=== PATIENT | female | born 1945 | race Caucasian/White ===

== ENCOUNTER 2016-09-18 08:10 | Emergency (ER) | payer MEDICARE, BC ==
[2016-09-18 08:42] VITALS: BP 143/53
--- NOTE | 2016-09-18 09:18 | UC ---
Respiratory Complaint HPI - HPI Summary HPI Summary: 2 WEEKS OF DEEP COUGH AND CHEST CONGESTION. NO FEVER, ST, EAR PAIN OR N/V/D. DOES NOT FEEL SHE IS IMPROVING AT ALL. FEELS INTERMITTENTLY SOB AND WHEEZY. - History of Current Complaint Chief Complaint: UCRespiratory Stated Complaint: CONGESTION Time Seen by Provider: 09/18/16 09:11 Hx Obtained From: Patient Onset/Duration: Gradual Onset, Lasting Weeks, Still Present Timing: Constant Severity Initially: Moderate Severity Currently: Moderate Pain Intensity: 0 Pain Scale Used: 0-10 Numeric Character: Cough: Productive Aggravating Factors: Nothing Alleviating Factors: Nothing Associated Signs And Symptoms: Positive: Dyspnea, Wheezing, URI, Nasal Congestion. Negative: Fever, Chills, Pleuritic Chest Pain, Hemoptysis, Dizziness, Calf Pain, Calf Swelling, Edema, Hoarseness - Allergies/Home Medications Allergies/Adverse Reactions: Allergies Allergy/AdvReac Type Severity Reaction Status Date / Time Sulfa Drugs AdvReac Unknown Rash Verified 09/18/16 08:43 PMH/Surg Hx/FS Hx/Imm Hx Cardiovascular History: Hypertension Psychological History: Anxiety - Surgical History Surgical History: Yes Surgery Procedure, Year, and Place: 04/2006 [facility] [place] gastric [place] band [place] - Family History Known Family History: Negative: Hypertension - Social History Alcohol Use: Rare Substance Use Type: None Smoking Status (MU): Former Smoker Type: Cigarettes Have You Smoked in the Last Year: Yes Review of Systems Constitutional: Negative ENT: Nasal Discharge Respiratory: Shortness Of Breath, Cough Cardiovascular: Negative Gastrointestinal: Negative All Other Systems Reviewed And Are Negative: Yes Physical Exam Triage Information Reviewed: Yes Appearance: Well-Appearing, No Pain Distress, Well-Nourished, Obese Vital Signs: Initial Vital Signs Temp 97.6 F 09/18/16 08:37 Pulse 80 09/18/16 08:37 Resp 20 09/18/16 08:37 BP 143/53 09/18/16 08:37 Pulse Ox 99 09/18/16 08:37 Vital Signs Reviewed: Yes Eyes: Positive: Conjunctiva Clear ENT: Positive: Hearing grossly normal, Pharynx normal, TMs normal Neck: Positive: Supple, Nontender, No Lymphadenopathy Respiratory: Positive: No respiratory distress, No accessory muscle use, Rhonchi - LEFT LOWER LOBE Cardiovascular Exam: Normal Abdomen Description: Positive: Soft Musculoskeletal: Positive: No Edema Neurological: Positive: Alert Psychological: Positive: Age Appropriate Behavior Skin: Negative: rashes UC Diagnostic Evaluation - Laboratory O2 Sat by Pulse Oximetry: 99 Respiratory Course/Dx - Differential Dx/Diagnosis Provider Diagnoses: ACUTE BRONCHITIS Discharge - Discharge Plan Condition: Stable Disposition: HOME Prescriptions: Albuterol HFA INHALER* [Ventolin HFA Inhaler*] 2 puff INH Q4H PRN #1 mdi PRN Reason: Shortness Of Breath Azithromycin [Azithromycin 500 MG TAB] 500 mg PO DAILY #5 tab predniSONE TAB* [Deltasone TAB*] 40 mg PO DAILY #10 tab Patient Education Materials: Acute Bronchitis (ED) Referrals: Carlos Silva MD [Primary Care Provider] - If Needed
== END 2016-09-18 09:33 | disposition home or self-care (01) ==
LOC: UCEAST 08:10
DX: J20.9 Acute bronchitis, unspecified (principal); Z87.891 Personal history of nicotine dependence
CPT/HCPCS: 99212; G0463

== ENCOUNTER 2019-03-02 11:44 | Emergency (ER) | payer MEDICARE, OTHER ==
--- OUTSIDE RECORDS SUMMARY | 2019-03-02 12:53 | XMS REPORT | Summary of Care ---
:1945 Author Organization [facility] Address [address] [facility] [place] [address] Care Team Providers Name Role Phone Carlos Silva Primary Care Provider Adilia Leung Unavailable Beverly Leblanc MD Unavailable Mariella Poole DPM Unavailable Awilda Zepeda RN Unavailable Unavailable Betsy San Unavailable Reason for Visit Reason Comments Sinus Problem onset Sun am, fever/chills, left side facial pain, sore throat, left ear pain, some cough, was tx for bronchitis a few weeks ago (given z-packand felt better afterwards) Encounter Details Date Type Department Care Team Description 02/26/2019 Office Visit [place] Casi Gonzales, Fever, unspecified fever cause (Primary Dx); 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 Probiotic Product Take 1 Cap by 0 Active (PROBIOTIC ADVANCED mouth DAILY. PO) Glucose Blood In 100 Strips by In 100 Strip 3 Active Vitro Vitro route 7 StripIndications: DAILY. contolled Diabetes mellitus non-insulin without complication dependent (HCC) diabetes. Test once a day Omeprazole delayed Take 20 mg by 90 Cap 3 Active rel cap 20 MG Oral mouth DAILY. 8 CAPSULE DELAYED RELEASEIndications: Gastroesophageal reflux disease without esophagitis albuterol HFA Take 2 Puffs by 1 Inhaler 3 Active (VENTOLIN) 108 (90 inhalation EVERY 8 Base) MCG/ACT FOUR HOURS Inhalation Aero NEEDED SolnIndications: (wheezing). Wheezing Blood Glucose Monitor 1 Device by Does 1 Device 0 Active Software Does not not apply route 8 apply DIRECTED. DeviceIndications: uncontrolled Diabetes mellitus non-insulin without complication dependent (HCC) diabetes. Brand: Insurance preferred diclofenac EC TAKE 1 TABLET 180 Tab 3 Active (VOLTAREN) 50 MG Oral TWICE A DAY 8 Tab EC Lancets Does not by Does not 100 Each 5 Active apply Misc apply route 9 DIRECTED. Brand:one touch delica Dx:DM 250.00 non insulin dependent.test bid. Glucose Blood (BLOOD 1 Each by Does 50 Strip 10 Active GLUCOSE TEST STRIPS) not apply route 9 In Vitro Strip THREE TIMES DAILY. Diagnosis: E11.9 Brand:one touch ultra strip blue Frequency:qd lisinopril (PRINIVIL, TAKE 1 TABLET 90 Tab 2 Active ZESTRIL) 20 MG Oral DAILY 9 TabIndications: Essential hypertension, benign citalopram (CELEXA) TAKE 1 TABLET 90 Tab 2 Active 20 MG Oral Tab DAILY 9 econazole nitrate 1 % APPLY TO THE 85 g 17 Active Apply externally AFFECTED AREAS 9 Cream OF THE GROIN TWICE A DAY NEEDED tramadol (ULTRAM) 50 Take 2 Tabs by 240 Tab 5 Active MG Oral Tab mouth EVERY SIX 9 HOURS NEEDED (pain). Max Daily Amount: 8 Tabs. . metFORMIN TAKE 1 TABLET 180 Tab 4 Active (GLUCOPHAGE) 500 MG TWICE A DAY 9 Oral TabIndications: Diabetes mellitus without complication (HCC) atorvastatin TAKE 1 TABLET 90 Tab 4 Active (LIPITOR) 20 MG Oral DAILY 9 TabIndications: Mixed hyperlipidemia azithromycin Take 2 pills on 6 Tab 0 02/27/20 Discontinued (ZITHROMAX) 250 MG the first day 12 27 Oral Tab and 1 pill each day for 4 days documented as of this encounter (statuses as of 02/26/2019) Active Problems Problem Noted Date Diabetes mellitus without complication 08/28/2017 Colon polyp 05/22/2012 Overview: Colonoscopy polypectomy 2008 next due 2014 Ovarian cyst 03/26/2008 Overview: S/p ovarian cyst removal left [facility] [place] 2005. Spastic colitis 08/14/2007 CARMELITA (obstructive sleep apnea) 08/14/2007 Overview: Dr Anaya, 01/02/09, Severe sleep disordered breathing CPAP titration Dr Anaya, 12/25/09 F/U sleep disorder, to continue CPAP auto titration device Osteoarthritis 08/14/2007 Overview: Of right hand and knees. Dr carballo 12/16. Morbid obesity 03/14/2007 Overview: Patient underwent Bariatric lap band surgery, Dr Gonzalez, [facility] , 05/09/2006. Mixed hyperlipidemia 03/14/2007 Essential hypertension, benign 03/14/2007 Depression with anxiety 03/14/2007 REFLUX ESOPHAGEAL 03/14/2007 documented as of this encounter (statuses as of 02/26/2019) Resolved Problems Problem Noted Date Resolved Date Osteoarthrosis, unspecified whether generalized or 02/21/2008 05/22/2012 localized, lower leg documented as of this encounter (statuses as of 02/26/2019) Immunizations Name Administration Dates Next Due Adacel TdaP 03/14/2007 Influenza (IM) Preservative Free 01/14/2014, 01/06/2011, 03/26/2008 Influenza Vaccine High Dose 02/20/2018, 01/06/2017, 12/21/2015, 01/16/2015 Influenza Vaccine Whole 02/02/2009, 03/14/2007, 03/14/2007 Influenza Virus Vaccine Pres Free 6-35 01/23/2012, 03/03/2010 Months PNEUMOCOCCAL POLYSACCHARIDE VACCINE 05/22/2012 Pneumococcal Conjugate(13 Valent) 06/27/2014 ZOSTER (ZOSTAVAX) VACCINE 09/06/2014 documented as of this encounter Social History Tobacco Use Types Packs/Day Years Used Date Never Smoker Smokeless Tobacco: Never Used Comments: smoked from 20-26 Alcohol Use Drinks/Week oz/Week Comments No 0 Standard drinks or equivalent 0.0 Social Isolation Answer Date Recorded In a typical week, how many times do you More than three times a week 2018 talk on the phone with family, friends, or neighbors? How often do you get together with friends More than three times a week 04/25 or relatives? How often do you attend methodist or Never 04/25/2018 anabaptist services? Do you belong to any clubs or No 04/25/2018 organizations such as methodist groups, [employer] or athletic groups, or school groups? How often do you attend meetings of the Never 04/25/2018 clubs or organizations you belong to? Are you now , , , 04/25/2018 , never or living with a partner? Physical Activity Answer Date Recorded On average, how many days per week do you engage in moderate to 2 days 2018 strenuous exercise (like walking fast, running, jogging, dancing, swimming, biking, or other activities that cause a light or heavy sweat)? On average, how many minutes do you engage in exercise at this 50 min 2018 level? Stress Answer Date Recorded Do you feel stress - tense, restless, nervous, or anxious, Not at all 2018 or unable to sleep at night because your mind is troubled all the time - these days? Financial Resource Strain Answer Date Recorded How hard is it for you to pay for the very basics like Not hard at all 2018 food, housing, medical care, and heating? Intimate Partner Violence Answer Date Recorded Within the last year, have you been afraid of your partner or No 04/25/2018 ex-partner? Within the last year, have you been humiliated or emotionally No 04/25/2018 abused in other ways by your partner or ex-partner? Within the last year, have you been kicked, hit, slapped, or No 04/25/2018 otherwise physically hurt by your partner or ex-partner? Within the last year, have you been raped or forced to have any No 04/25/2018 kind of sexual activity by your partner or ex-partner? Food Insecurity Answer Date Recorded Within the past 12 months, you worried that your food would Never true 2018 run out before you got money to buy more. Within the past 12 months, the food you bought just didn't Never true 2018 last and you didn't have money to get more. Transportation Needs Answer Date Recorded In the past 12 months, has lack of transportation kept you from No 04/25/2018 medical appointments or from getting medications? In the past 12 months, has lack of transportation kept you from No 04/25/2018 meetings, work, or getting things needed for daily living? Sex Assigned at Date Recorded Not on file Job Start Date Occupation Industry Not on file Not on file Not on file Travel History Travel Start Travel End No recent travel history available. documented as of this encounter Last Filed Vital Signs Vital Sign Reading Time Taken Comments Blood Pressure 144/82 02/26/2019 10:41 AM EST Pulse 86 02/26/2019 10:41 AM EST Temperature 38.9 02/26/2019 10:41 AM EST C (102 F) Respiratory Rate - - Oxygen Saturation 97% 02/26/2019 10:41 AM EST Inhaled Oxygen Concentration - - Weight 143.3 kg (316 lb) 02/26/2019 10:41 AM EST Height 167.6 cm (5' 6") 02/26/2019 10:41 AM EST Body Mass Index 51 02/26/2019 10:41 AM EST documented in this encounter Patient Instructions Patient InstructionsCasi Knight NP - 02/26/2019 10:40 AM EST Strep was negative. I will let you know about the flu swab we did. You have opted not to take tamiflu. 1) Take Tylenol and Motrin over the counter as needed for pain and symptom relief 2) hot tea with lemon, honey, salt water gargles, cough drops - to soothe your throat. 4) Get plenty of rest and fluids 5) Please call or return if symptoms worsen or fail to improve in 5-7 days. If fever doesn't come down with tylenol/motrin, you develop shortness of breath or chest pain - go to the er. 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 It can affect your nose, throat, ears,and sinuses. Common signs and symptoms include the following: Cold symptoms are usually worst for the first 3 to5 days. You may have any of the following: Runny or stuffy nose Sneezing and coughing Sore throat or hoarseness Red, watery, and sore eyes Fatigue Chills and fever Headache, body aches, or sore muscles Seek care immediately if: You have severe headaches, a stiff neck, or eye pain when you look at bright light. You have chest pain or trouble breathing. Contact your healthcare provider if: You have a fever over 102F (39C). Your sore throat gets worse or you see white or yellow spots in your throat. Your symptoms get worse after 3 to 5 days or your cold is not better in 14 days. You have a rash anywhere on your skin. You have large, tender lumps in your neck. You have thick, green or yellow drainage from your nose. You cough up thick yellow, green, martino, or bloody mucus. You have vomiting for more than 24 hours and cannot keep fluids down. You have a bad earache. You have questions or concerns about your condition or care. Treatment for a cold: There is no cure for the common cold. Colds are caused by viruses and do not get better with antibiotics. Most people get better in 7 to 14 days. You may continue to cough for 2 to 3 weeks. The following may help decrease your symptoms: Decongestants help reduce nasal congestion and help you breathe more easily. If you take decongestant pills, they may make you feel restless or not able to sleep. Do not use decongestant sprays for more than a few days. Cough suppressants help reduce coughing. Ask your healthcare provider which type of cough medicine is best for you. NSAIDs , such as ibuprofen, help decrease swelling, pain, and fever. NSAIDs can cause stomach bleeding or kidney problems in certain people. If you take blood thinner medicine, always ask your healthcare provider if NSAIDs are safe for you. Always read the medicine label and follow directions. Acetaminophen decreases pain and fever. It is available without a doctor' s order. Ask how muchto take and how often to take it. Follow directions. Acetaminophen can cause liver damage if not taken correctly. Manage your cold: Use a humidifier or vaporizer. Use a cool mist humidifier or a vaporizer to increase air moisture in your home. This may make it easier for you to breathe and help decrease your cough. Gargle with warm salt water to help your sore throat feel better. Make salt water by adding teaspoon salt to 1 cup warm water. You may also suck on hard candy or throat lozenges. You may usea sore throat spray. Use saline nasal drops to help relieve your congestion. Drink liquids as directed. Liquids help keep your air passages moist and help you cough up mucus. Ask how much liquid to drink each day and which liquids are best for you. Rest as much as possible. Slowly start to do more each day. Prevent spreading your cold to others: Try to stay away from other people during the first 2 to 3 days of your cold when it is more easily spread. Do not share food or drinks. Do not share hand towels with household members. Wash your hands often, especially after you blow your nose. Turn away from other people and cover your mouth and nose with a tissue when you sneeze or cough. Follow up with your healthcare provider as directed: Write down your questions so you remember to ask them during your visits. 2016 [employer]. Information is for End User's use only and may not be sold, redistributed or otherwise used for commercial purposes. All illustrations and images included in CareNotes are the copyrighted property of [employer], [employer]. or [employer]. The above information is an certified medical aide only. It is not intended as medical advice for individual conditions or treatments. Talk to your doctor, nurse or pharmacist before following any medical regimen to see if it is safe and effective for you. documented in this encounter Progress Notes Casi Knight NP - 02/26/2019 10:40 AM EST PATIENT: Juliane Ling : 1945 DATE OF SERVICE: 02/26/2019 CHIEF COMPLAINT: Chief Complaint Patient presents with Sinus Problem onset Sun am, fever/chills, left side facial pain, sore throat, left ear pain , some cough, was tx for bronchitis a few weeks ago (given z-packand felt better afterwards) Subjective HISTORY OF PRESENT ILLNESS: Juliane Ling is a 73-y.o. female. HPI Sudden onset illness Monday morning. Fever, chills, sore throat. No cough, no shortness of breath (more than normal). +Body aches, malaise, headaches. Left ear plugged up. Eyes ok. Sinus pain andpressure (facial). She did not take any tylenol or motrin today, did not want to mask the symptoms. She took dayquil and nyquil yesterday - did not help much. Chloraseptic spray didn't help. She takes tramadol every day for arthritis - this has been helping with the symptoms. She was treated for bronchitis 2 weeks ago with a zpack, this completely resolved at the time. These symptoms are different and all upper respiratory, nothing below the throat. Past Medical History: Diagnosis Date Morbid obesity (HCC) 03/14/2007 Patient underwent Bariatric surgery, 05/09/2006. CARMELITA (obstructive sleep apnea) 08/14/2007 Osteoarthritis 08/14/2007 Of right hand and knees. Postmenopausal Spastic colitis 08/14/2007 Family History Problem Relation Age of Onset Breast Cancer Mother Alzheimer's Disease Mother 80 Cancer Sister Uterine Uterine Cancer Sister Alcohol/Drug Sister Psychiatry Sister Stroke Father 95 No Known Problems Daughter No Known Problems Son Current Outpatient Medications Medication Sig albuterol HFA (VENTOLIN) 108 (90 Base) MCG/ACT Inhalation Aero Soln Take 2 Puffs by inhalation EVERY FOUR HOURS NEEDED (wheezing). atorvastatin (LIPITOR) 20 MG Oral Tab TAKE 1 TABLET DAILY Blood Glucose Monitor Software Does not apply Device 1 Device by Does not apply route DIRECTED. uncontrolled non-insulin dependent diabetes. Brand : Insurance preferred citalopram (CELEXA) 20 MG Oral Tab TAKE 1 TABLET DAILY diclofenac EC (VOLTAREN) 50 MG Oral Tab EC TAKE 1 TABLET TWICE A DAY econazole nitrate 1 % Apply externally Cream APPLY TO THE AFFECTED AREAS OF THE GROIN TWICE ADAY NEEDED ERGOCALCIFEROL PO Take by mouth DAILY. Glucose Blood (BLOOD GLUCOSE TEST STRIPS) In Vitro Strip 1 Each by Does not apply route THREETIMES DAILY. Diagnosis: E11.9 Brand:one touch ultra strip blue Frequency:qd Glucose Blood In Vitro Strip 100 Strips by In Vitro route DAILY. contolled non-insulin dependent diabetes. Test once a day Lancets Does not apply Misc by Does not apply route DIRECTED. Brand: one touch delica Dx:DM 250.00 non insulin dependent.test bid. lisinopril (PRINIVIL, ZESTRIL) 20 MG Oral Tab TAKE 1 TABLET DAILY metFORMIN (GLUCOPHAGE) 500 MG Oral Tab TAKE 1 TABLET TWICE A DAY Omeprazole delayed rel cap 20 MG Oral CAPSULE DELAYED RELEASE Take 20 mg by mouth DAILY. Probiotic Product (PROBIOTIC ADVANCED PO) Take 1 Cap by mouth DAILY. tramadol (ULTRAM) 50 MG Oral Tab Take 2 Tabs by mouth EVERY SIX HOURS NEEDED (pain). Max Daily Amount: 8 Tabs. . No current facility-administered medications for this visit. 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 Social Needs Financial resource strain: Not hard at all Food insecurity: Worry: Never true Inability: Never true Transportation needs: Medical: No Non-medical: No Tobacco Use Smoking status: Never Smoker Smokeless tobacco: Never Used Tobacco comment: smoked from Substance and Sexual Activity Alcohol use: No Alcohol/week: 0.0 standard drinks Drug use: No Sexual activity: Yes Partners: Male Lifestyle Physical activity: Days per week: 2 days Minutes per session: 50 min Stress: Not at all Relationships Social connections: Talks on phone: More than three times a week Gets together: More than three times a week Attends anabaptist service: Never Active member of club or organization: No Attends meetings of clubs or organizations: Never Relationship status: Intimate partner violence: Fear of current or ex partner: No Emotionally abused: No Physically abused: No Forced sexual activity: No Other Topics Concern Back Care Not Asked Bike Helmet Not Asked Blood Transfusions Not Asked Caffeine Concern Not Asked Exercise No Comment: sedentary lifestyle Hobby Hazards Not Asked International Travel Not Asked Service Not Asked Occupational Exposure Not Asked Seat Belt Not Asked Self-Exams Not Asked Sleep Concern Not Asked Special Diet Not Asked Stress Concern Yes Comment: celexa controls anxiety Weight Concern Yes Social History Narrative and lives with in [facility] ground floor of daughters house 2 adult children REVIEW OF SYSTEMS: Review of Systems Constitutional: Positive for chills, fever and malaise/fatigue. HENT: Positive for congestion, ear pain (left), sinus pain and sore throat. Eyes: Negative for pain and discharge. Respiratory: Negative for cough and shortness of breath. Cardiovascular: Negative for chest pain and palpitations. Gastrointestinal: Negative for nausea and vomiting. Musculoskeletal: Body aches Neurological: Positive for headaches. Negative for dizziness. Objective PHYSICAL EXAM: VITALS: BP 144/82 | Pulse 86 | Temp (!) 102 F (38.9 C) | Ht 5' 6" ( 1.676 m) | Wt 316 lb(143.3 kg) | SpO2 97% | BMI 51.00 kg/m Body mass index is 51 kg/m. Physical Exam Vitals signs and nursing note reviewed. Constitutional: General: She is not in acute distress. Appearance: Normal appearance. She is well-developed. She is not ill- appearing or toxic-appearing. HENT: Right Ear: Tympanic membrane, ear canal and external ear normal. No mastoid tenderness. Tympanic membrane is not erythematous, retracted or bulging. Left Ear: Tympanic membrane, ear canal and external ear normal. No mastoid tenderness. Tympanic membrane is not erythematous, retracted or bulging. Nose: Mucosal edema (erythema) and rhinorrhea present. Rhinorrhea is clear. Right Sinus: Frontal sinus tenderness present. No maxillary sinus tenderness. Left Sinus: Frontal sinus tenderness present. No maxillary sinus tenderness. Mouth/Throat: Mouth: Mucous membranes are moist. Pharynx: Oropharynx is clear. Uvula midline. Posterior oropharyngeal erythema present. No oropharyngeal exudate. Tonsils: No tonsillar exudate. Swellin+ on the right. 1+ on the left. Eyes: Conjunctiva/sclera: Conjunctivae normal. Cardiovascular: Rate and Rhythm: Normal rate and regular rhythm. Heart sounds: Normal heart sounds. Pulmonary: Effort: Pulmonary effort is normal. Breath sounds: Normal breath sounds. Lymphadenopathy: Head: Right side of head: No submental, submandibular or tonsillar adenopathy. Left side of head: No submental, submandibular or tonsillar adenopathy. Cervical: No cervical adenopathy. Right cervical: No superficial cervical adenopathy. Left cervical: No superficial cervical adenopathy. Upper Body: Right upper body: No supraclavicular adenopathy. Left upper body: No supraclavicular adenopathy. Neurological: Mental Status: She is alert. Psychiatric: Behavior: Behavior is cooperative. ASSESSMENT / IMPRESSION: ICD-9-CM ICD-10-CM 1. Fever, unspecified fever cause 780.60 R50.9 STREP A ANTIGEN (AMB POCT) THROAT STREP SCREEN CULTURE FLU A/FLU B/RSV PCR ASSAY (TESTED AT [facility] ONLY) THROAT STREP SCREEN CULTURE FLU A/FLU B/RSV PCR ASSAY (TESTED AT [facility] ONLY) 2. Acute URI 465.9 J06.9 STREP A ANTIGEN (AMB POCT) THROAT STREP SCREEN CULTURE FLU A/FLU B/RSV PCR ASSAY (TESTED AT [facility] ONLY) THROAT STREP SCREEN CULTURE FLU A/FLU B/RSV PCR ASSAY (TESTED AT [facility] ONLY) Plan 1. Fever, unspecified fever cause - STREP A ANTIGEN (AMB POCT) - negative - THROAT STREP SCREEN CULTURE; Future - FLU A/FLU B/RSV PCR ASSAY (TESTED AT [facility] ONLY); Future - THROAT STREP SCREEN CULTURE - FLU A/FLU B/RSV PCR ASSAY (TESTED AT [facility] ONLY) 2. Acute URI - STREP A ANTIGEN (AMB POCT) - THROAT STREP SCREEN CULTURE; Future - FLU A/FLU B/RSV PCR ASSAY (TESTED AT [facility] ONLY); Future - THROAT STREP SCREEN CULTURE - FLU A/FLU B/RSV PCR ASSAY (TESTED AT [facility] ONLY) Strep was negative. I will let you know about the flu swab we did. You have opted not to take tamiflu. 1) Take Tylenol and Motrin over the counter as needed for pain and symptom relief 2) hot tea with lemon, honey, salt water gargles, cough drops - to soothe your throat. 4) Get plenty of rest and fluids 5) Please call or return if symptoms worsen or fail to improve in 5-7 days. If fever doesn't come down with tylenol/motrin, you develop shortness of breath or chest pain - go to the er. Author: Casi Knight NP 02/26/2019 12:11 documented in this encounter Plan of Treatment Date Type Specialty Care Team Description 04/26/2019 Chronic Care Management Family Practice 05/17/2019 Lab Internal Medicine 05/23/2019 Office Visit [facility] Adilia Leung FNP [address] [place] [address] [phone] Name Type Priority Associated Diagnoses Date/Time THROAT STREP SCREEN Lab Routine Fever, unspecified fever 02/26/2019 11:00 AM EST CULTURE cause Acute URI FLU A/FLU B/RSV PCR Lab Routine Fever, unspecified fever 02/26/2019 11:15 AM EST ASSAY (TESTED AT [facility] ONLY) Acute URI Name Type Priority Associated Diagnoses Order Schedule THROAT STREP SCREEN Lab Routine Fever, unspecified fever 1 Occurrences starting CULTURE cause 02/26/2019 until Acute URI 08/25/2019 FLU A/FLU B/RSV PCR Lab Routine Fever, unspecified fever 1 Occurrences starting ASSAY (TESTED AT cause 02/26/2019 until [facility] ONLY) Acute URI 08/25/2019 Health Maintenance Due Date Last Done Comments PAP SMEAR 07/02/2010 07/02/2008, 02/17/2006, 11/09/2001 ZOSTER IMMUNIZATION SERIES 11/01/2014 09/06/2014 (2 of 3) INFLUENZA VACCINE (#1) 2018 02/20/2018, 01/06/2017, 12/21/2015, Additional history exists Diabetic Eye Exam 02/21/2019 02/21/2018, 11/08/2016 HEMOGLOBIN A1C 03/02/2019 11/30/2018, 08/04/2018, 02/20/2018, Additional history exists DEPRESSION SCREENING 04/25/2019 04/25/2018 FALL RISK ASSESSMENT 04/25/2019 04/25/2018, 04/25/2018 MAMMOGRAM (SCREENING) 04/25/2019 04/25/2018, 01/23/2017, 08/01/2016, Additional history exists MEDICARE ANNUAL WELLNESS 04/25/2019 04/25/2018, 01/06/2017, VISIT 12/21/2015, Additional history exists FOOT EXAM 05/23/2019 05/23/2018, 05/23/2018, 03/10/2017 LIPID DISORDER SCREENING 02/27/2020 02/26/2019, 11/30/2018, 02/20/2018, Additional history exists COLONOSCOPY SCREENING 07/24/2024 07/24/2014, 12/11/2008, 12/11/2008 PNEUMOCOCCAL 65+YRS Completed 06/27/2014, 05/22/2012 HPV IMMUNIZATION SERIES Aged Out No longer eligible based on patient's age to complete this topic MENINGOCOCCAL VACCINE IMM Aged Out No longer eligible based on patient's age to complete this topic documented as of this encounter Goals Goal Patient Goal Associated Recent Patient-Stated? Author Type Problems Progress Blood Pressure Blood Pressure 144/82 No Madhu, < 150/90 (02/26/2019 ADDISON Pat 10:41 AM EST) Note: This is an individualized treatment (blood pressure) goal for Juliane Ling: Displayed above (on the left) is your goal for blood pressure control. Your most recent blood pressure is also shown above, on the right. You should try to achieve blood pressures that are lower than your goal listed above (on the left). Depression screen (PHQ-9) total score < 5 Depression Adilia Poon FNP Note: This is an individualized treatment (depression) goal for Juliane Ling: Displayed above is your goal for a depression screening (PHQ-9) score that would indicate good control of your depression. Glycohemoglobin A1c < 7.0 Diabetes 7.1 (11/30/2018 8:16 No Adilia Leung FNP AM EDT) Note: This is an individualized treatment (diabetes control, HgbA1C) goal for Juliane Ling: Displayed above is your progress towards your HgbA1C goal. Your goal is shown above (on the left); your most recent HgbA1C is shown on the right. Note that lower numbers are better. Weight loss vs. 18 mo Lifestyle 13.3 (02/26/2019 10:41 AM No Adilia Leung FNP max (lbs) >= 10 EST) Note: This is an individualized lifestyle goal for Juliane Ling: Your body mass index (BMI) is more than 30. You should lose weight. A reasonable starting goal is to lose 10 pounds. Displayed above is how many pounds you have lost thus far towards your 10 pound weight loss goal. Keep immunizations current Lifestyle Adilia Poon FNP Note: This is an individualized lifestyle goal for Juliane Ling: Please be sure to keep up-to-date on recommended immunizations. For example, this would include a yearly influenza vaccine. Immunization status can be seen by looking at the Health Maintenance sections of your e[facility], Plan of Care, and any After Visit Summaries. Keep a regular sleep schedule Lifestyle No Adilia Leung FNP Note: This is an individualized lifestyle goal for Juliane Ling: Please maintain a regular sleep schedule. This may help with some symptoms of depression. Take all prescribed medications as Self-management No Adilia Leung FNP directed Note: This is an individualized self-management goal for Juliane Ling: Please take all prescribed medications as directed. 1. Do not skip doses. If you cannot afford your medications, talk with your doctor. 2. Use a pill reminder system such as a pill box if needed. Your pharmacist can help you with this. 3. Contact your Pharmacy 5 days before your medication runs out. If you cannot take your medications for any reasons, talk with your doctor. 4. Please bring all of your medication bottles and inhalers (or a list of all your medications/inhalers) with you to every visit. Potential barriers to meeting all of your care plan goals will continue to be addressed on an ongoing basis. documented as of this encounter Implants Implanted Type Area Auto Body Man Device Shelf Model / Identifier Expiration Serial / Lot Date Bone Cement, Double 80gm - [id number] Bilateral DEPUY [id number] / Implanted: Qty: 2 on 04/14/2008 at [facility] : Knee / [id number] Femoral Comp Lps Flex Opt F-R - [id number] Right: [employer]IE [employer]LL 5764- 016-52 / Implanted: Qty: 1 on 04/14/2008 at [facility] / [id number] Patella, 32mm Nexgen - [id number] Right: [employer]IE [employer]RELL / Implanted: Qty: 1 on 04/14/2008 at [facility] / [id number] Prolong Surface Lps Ef 5/6 10m - [id number] Right: S[employer]IE [employer]LL 5962- 040-10 / Implanted: Qty: 1 on 04/14/2008 at [facility] / [id number] Tibial Plate Size 5 Nexgen - [id number] Right: S[employer]LL 5980-47- 01 / Implanted: Qty: 1 on 04/14/2008 at [facility] / [id number] Patella, 32mm Nexgen - [id number] Left: SALLIE FARRELL / Implanted: Qty: 1 on 04/14/2008 at [facility] / [id number] Femoral Comp Lps Flex Opt F-L - [id number] Left: S[employer]IE [employer]ARRELL 5764-016 -51 / Implanted: Qty: 1 on 04/14/2008 at [facility] / [id number] Tibial Plate Size 5 Nexgen - [id number] Left: SALLIE FARRELL 5980-47- 01 / Implanted: Qty: 1 on 04/14/2008 at [facility] / [id number] Prolong Surface Lps Ef 5/6 10m - [id number] Left: SALLIE FARRELL 5962- 040-10 / Implanted: Qty: 1 on 04/14/2008 at [facility] / [id number] documented as of this encounter Procedures Procedure Name Priority Date/Time Associated Diagnosis Comments STREP A ANTIGEN Routine 02/26/2019 11:00 AM Fever, unspecified Results for this (AMB POCT) EST fever cause procedure are in Acute URI the results section. DIABETES OPH Routine 11/08/2018 Results for this EXAM procedure are in the results section. documented in this encounter Results STREP A ANTIGEN (AMB POCT) (02/26/2019 11:00 AM EST) Strep A Antigen Negative Negative [facility] (POCT) POCT Control Line Present Present [facility] POCT Strep A Antigen Yes, Sent for [facility] Confirm (POCT) Confirmation POCT Lot Number [id number] [facility] POCT Expiration Date 12/10/19 [facility] POCT Specimen Performing Organization Address City[facility] Phone [facility] [address] [place] [address] DIABETES OPH EXAM (11/08/2018) OPHTHALMOLOGY No retinopathy No retinopathy, [facility] EXAM Retinopathy POCT Performing Organization Address City/[facility] Phone Number [facility] [address] [place] [address] documented in this encounter Visit Diagnoses Diagnosis Fever, unspecified fever cause - Primary Acute URI Acute upper respiratory infections of unspecified site documented in this encounter Insurance Payer Benefit Plan / Subscriber ID Effective Phone Address Type Group Dates MEDICARE MEDICARE PART A xxxxxxxxxxx 2012-Pres Medicare & B ent COMMERCIAL COMMERCIAL xxxxxxxxx Effective for Commercial GENERIC GENERIC PLAN all dates (Home) [address] [phone] [place], [place] (Work) [address] documented as of this encounter
--- OUTSIDE RECORDS SUMMARY | 2019-03-02 12:53 | XMS REPORT | Summary of Care ---
:1945 Author Organization [facility] Address [address] [place] [address] Care Team Providers Name Role Phone Carlos Silva Primary Care Provider Adilia Leung Unavailable Beverly Leblanc MD Unavailable Mariella Poole DPM Unavailable Awilda Zepeda RN Unavailable Unavailable Betsy San Unavailable Reason for Visit Reason Comments Congestion pt states 10 days of nasal congestion, cough, scratchy throat, fatigue, and now some chest congestion Encounter Details Date Type Department Care Team Description 01/21/2019 Office Visit [facility], Sangita, Acute bronchitis, unspecified organism (Primary Dx); Practice PA-C Diabetes mellitus without complication ([facility]) [address] [place] [address] [place] [address] [phone] Allergies Active Allergy Reactions Severity Noted Date Comments Nystatin-Triamcinolone Rash 12/21/2015 Sulfa Antibiotics Unknown Reaction 03/14/2007 documented as of this encounter (statuses as of 01/21/2019) Medications Medication Sig Dispensed Refills Start Date End Date Status ERGOCALCIFEROL PO Take by mouth 0 Active DAILY. Probiotic Product Take 1 Cap by 0 Active (PROBIOTIC ADVANCED mouth DAILY. PO) Glucose Blood In Vitro 100 Strips by In 100 Strip 3 03/10/2017 Active StripIndications: Vitro route DAILY. Diabetes mellitus contolled without complication non-insulin (HCC) dependent diabetes. Test once a day atorvastatin (LIPITOR) Take 1 Tab by 90 Tab 3 01/18/2018 Active 20 MG Oral mouth DAILY. TabIndications: Mixed hyperlipidemia Omeprazole delayed rel Take 20 mg by 90 Cap 3 01/18/2018 Active cap 20 MG Oral CAPSULE mouth DAILY. DELAYED RELEASEIndications: Gastroesophageal reflux disease without esophagitis albuterol HFA Take 2 Puffs by 1 Inhaler 3 01/18/2018 Active (VENTOLIN) 108 (90 inhalation EVERY Base) MCG/ACT FOUR HOURS Inhalation Aero NEEDED (wheezing). SolnIndications: Wheezing metFORMIN (GLUCOPHAGE) Take 1 Tab by 180 Tab 3 03/08/2018 Active 500 MG Oral mouth TWICE DAILY. TabIndications: Diabetes mellitus without complication (HCC) Blood Glucose Monitor 1 Device by Does 1 Device 0 03/08/2018 Active Software Does not not apply route apply DIRECTED. DeviceIndications: uncontrolled Diabetes mellitus non-insulin without complication dependent (HCC) diabetes. Brand: Insurance preferred diclofenac EC TAKE 1 TABLET 180 Tab 3 04/09/2018 Active (VOLTAREN) 50 MG Oral TWICE A DAY Tab EC Lancets Does not apply by Does not apply 100 Each 5 09/04/2018 Active Misc route DIRECTED. Brand:one touch delica Dx:DM 250.00 non insulin dependent.test bid. Glucose Blood (BLOOD 1 Each by Does not 50 Strip 10 09/04/2018 Active GLUCOSE TEST STRIPS) apply route THREE In Vitro Strip TIMES DAILY. Diagnosis: E11.9 Brand:one touch ultra strip blue Frequency:qd lisinopril (PRINIVIL, TAKE 1 TABLET 90 Tab 2 10/29/2018 Active ZESTRIL) 20 MG Oral DAILY TabIndications: Essential hypertension, benign citalopram (CELEXA) 20 TAKE 1 TABLET 90 Tab 2 10/29/2018 Active MG Oral Tab DAILY econazole nitrate 1 % APPLY TO THE 85 g 17 12/03/2018 Active Apply externally Cream AFFECTED AREAS OF THE GROIN TWICE A DAY NEEDED tramadol (ULTRAM) 50 Take 2 Tabs by 240 Tab 5 12/13/2018 Active MG Oral Tab mouth EVERY SIX HOURS NEEDED (pain). Max Daily Amount: 8 Tabs. . azithromycin Take 2 pills on 6 Tab 0 01/21/2019 Active (ZITHROMAX) 250 MG the first day and Oral Tab 1 pill each day for 4 days documented as of this encounter (statuses as of 01/21/2019) Active Problems Problem Noted Date Diabetes mellitus without complication 08/28/2017 Colon polyp 05/22/2012 Overview: Colonoscopy polypectomy 2009 next due 2014 Ovarian cyst 03/26/2008 Overview: S/p ovarian cyst removal left [facility] [place] 2005. Spastic colitis 08/14/2007 CARMELITA (obstructive sleep apnea) 08/14/2007 Overview: Dr Anaya, 01/02/09, Severe sleep disordered breathing CPAP titration Dr Anaya, 12/25/09 F/U sleep disorder, to continue CPAP auto titration device Osteoarthritis 08/14/2007 Overview: Of right hand and knees. Dr carballo 12/16. Morbid obesity 03/14/2007 Overview: Patient underwent Bariatric lap band surgery, Dr Gonzalez, [facility] , 05/09/2006. Mixed hyperlipidemia 03/14/2007 Essential hypertension, benign 03/14/2007 Depression with anxiety 03/14/2007 REFLUX ESOPHAGEAL 03/14/2007 documented as of this encounter (statuses as of 01/21/2019) Resolved Problems Problem Noted Date Resolved Date Osteoarthrosis, unspecified whether generalized or 02/21/2008 05/22/2012 localized, lower leg documented as of this encounter (statuses as of 01/21/2019) Immunizations Name Administration Dates Next Due Adacel [...] or relatives? How often do you attend alevism or Never 04/25/2018 moravian services? Do you belong to any clubs or No 04/25/2018 organizations such as alevism groups, unions, fraternal or athletic groups, or school groups? How [...] Sign Reading Time Taken Comments Blood Pressure 138/82 01/21/2019 10:46 AM EDT Pulse 82 01/21/2019 10:46 AM EDT Temperature 37.4 01/21/2019 10:46 AM EDT C (99.3 F) Respiratory Rate - - Oxygen Saturation 98% 01/21/2019 10:46 AM EDT Inhaled Oxygen Concentration - - Weight 144.7 kg (319 lb) 01/21/2019 10:46 AM EDT Height 167.6 cm (5' 6") 01/21/2019 10:46 AM EDT Body Mass Index 51.49 01/21/2019 10:46 AM EDT documented in this encounter Patient Instructions Patient InstructionsDoSangita grajeda PA-C - 01/21/2019 10:40 AM EDTEscribed zpak , take with food Avoid creamy foods and drink Rest, gargle with warm salt water Push water, soup, juice, tea with honey/lemon OTC Tylenol/Ibuprofen for fever/pain Call if not improving or with any questions or concerns documented in this encounter Progress Notes Sangita Dos Santos PA-C - 01/21/2019 10:40 AM EDT PATIENT: Juliane Ling : 1945 DATE OF SERVICE: 01/21/2019 REFERRING PRACTITIONER: Say PRIMARY CARE PROVIDER: Carlos Silva CHIEF COMPLAINT: Chief Complaint Patient presents with Congestion pt states 10 days of nasal congestion, cough, scratchy throat, fatigue, and now some chest congestion Subjective HISTORY OF PRESENT ILLNESS: Juliane Ling is a 73-y.o. female who presents with nasal congestion, coughing -- yellowish sputum,scratchy throat, fatigue, chest congestion x 10 days Had chills and feverish first couple of days Has been taking OTC mucinex -- did loosen some Has DM II -- currently takes metformin 500 BID BS has good -- around 120 Denies nausea, vomiting, diarrhea, chest pains, SOB Past Medical History: Diagnosis Date Morbid obesity (HCC) 03/14/2007 Patient underwent Bariatric surgery, 05/09/2006. CARMELITA (obstructive sleep apnea) 08/14/2007 Osteoarthritis 08/14/2007 Of right hand and knees. Postmenopausal Spastic colitis 08/14/2007 Past Surgical History: Procedure Laterality Date AR GI NUCLEAR PROCEDURE UNLISTED 04/2006 gastric band, Dr. Gonzalez TOTAL KNEE REPLACEMENT Bilateral 04/14/2008 bilateral, 04/2008 Family History Problem Relation Age of Onset [...] (wheezing). atorvastatin (LIPITOR) 20 MG Oral Tab Take 1 Tab by mouth DAILY. Blood Glucose Monitor Software Does not apply [...] DAILY metFORMIN (GLUCOPHAGE) 500 MG Oral Tab Take 1 Tab by mouth TWICE DAILY. Omeprazole delayed rel cap 20 MG Oral [...] level: Not on file Occupational History Occupation: [employer] Social Needs Financial resource strain: Not hard [...] More than three times a week Attends moravian service: Never Active member of club or [...] Social History Narrative and lives with in [facility] ground floor of daughters house 2 adult children REVIEW OF SYSTEMS: Skin: negative skin lesions Eyes: negative visual blurring Ears/Nose/Throat: positive rhinorrhea, scratchy throat, sinus pressure, post nasal drip Respiratory: positive cough Cardiovascular: negative chest pain Gastrointestinal: negative abdominal pain, constipation, diarrhea, nausea or vomiting Genitourinary: negative burning on urination, dysuria or vaginal discharge Musculoskeletal: positive arthritis/joint pain Neurologic: negative numbness or tingling of feet or hands Psychiatric: positive anxiety Hematologic/Lymphatic/Immunologic: negative allergies Endocrine: positive diabetes II Objective PHYSICAL EXAMINATION: VITALS: BP 138/82 (BP Location: Left arm, Patient Position: Sitting) | Pulse 82 | Temp 99.3 F(37.4 C) | Ht 5' 6" (1.676 m) | Wt 319 lb (144.7 kg) | SpO2 98% | BMI 51.49 kg/m Body mass index is 51.49 kg/m. General appearance: alert, mild distress, cooperative, oriented times 3, morbidly obese Skin: Skin color, texture, turgor normal. No rashes or lesions. Head: Normocephalic. No masses, lesions, tenderness or abnormalities Eyes: conjunctivae/corneas clear. PERRL, EOM's intact. Ears: positive findings: TMs mild bulging bilaterally Nose/Sinuses: positive findings: mucosa erythematous and swollen, clear rhinorrhea Oropharynx: positive findings: mild oropharyngeal erythema, post nasal drip present Neck: Neck supple, FROM. No cervical or supraclavicular adenopathy. Lungs: Scattered rhonchi bilaterally Heart: RRR. No murmur, clicks or gallops. Trace lower limb edema . IMPRESSION: ICD-9-CM ICD-10-CM 1. Acute bronchitis, unspecified organism 466.0 J20.9 2. Diabetes mellitus without complication (HCC) 250.00 E11.9 Plan PLAN: 1. Escribed zpak, take with food Avoid creamy foods and drink Rest, gargle with warm salt water Push water, soup, juice, tea with honey/lemon OTC Tylenol/Ibuprofen for fever/pain 2. Continue with current dose of metformin Call if not improving or with any questions or concerns Author: Sangita Dos Santos PA-C 01/21/2019 08:27 documented in this encounter Plan of Treatment Date Type Specialty Care Team Description 04/26/2019 Chronic Care Management Family Practice 05/17/2019 Lab Internal Medicine 05/23/2019 Office Visit Family Practice Adilia Leung FNP [address] [place] [address] [phone] Health Maintenance Due Date Last Done Comments PAP SMEAR 07/02/2010 07/02/2008, 02/17/2006, 11/09/2001 ZOSTER IMMUNIZATION SERIES 11/01/2014 09/06/2014 (2 of 3) INFLUENZA VACCINE (#1) 2018 02/20/2018, 01/06/2017, 12/21/2015, Additional history exists HEMOGLOBIN A1C 03/02/2019 11/30/2018, 08/04/2018, 02/20/2018, Additional history exists DEPRESSION SCREENING 04/25/2019 04/25/2018 FALL RISK ASSESSMENT 04/25/2019 04/25/2018, 04/25/2018 MAMMOGRAM (SCREENING) 04/25/2019 04/25/2018, 01/23/2017, 08/01/2016, Additional history exists MEDICARE ANNUAL WELLNESS 04/25/2019 04/25/2018, 01/06/2017, VISIT 12/21/2015, Additional history exists FOOT EXAM 05/23/2019 05/23/2018, 05/23/2018, 03/10/2017 LIPID DISORDER SCREENING 12/01/2019 11/30/2018, 02/20/2018, 08/18/2017, Additional history exists Diabetic Eye Exam 02/22/2020 02/21/2018, 11/08/2016 COLONOSCOPY SCREENING 07/24/2024 07/24/2014, 12/11/2008, 12/11/2008 PNEUMOCOCCAL 65+YRS Completed 06/27/2014, 05/22/2012 HPV IMMUNIZATION SERIES Aged Out No longer eligible based on patient's age to complete this topic MENINGOCOCCAL VACCINE IMM Aged Out No longer eligible based on patient's age to complete this topic documented as of this encounter Goals Goal Patient Goal Associated Recent Patient-Stated? Author Type Problems Progress Blood Pressure Blood Pressure 138/82 No Madhu, < 150/90 (01/21/2019 ADDISON Pat 10:46 AM EDT) Note: This is an individualized treatment (blood pressure) goal for Juliane Ling: Displayed above (on the left) is your goal for blood pressure control. Your most recent blood pressure is also shown above, on the right. You should try to achieve blood pressures that are lower than your goal listed above (on the left). Depression screen (PHQ-9) total score < 5 Depression No Adilia Leung FNP Note: This is an individualized treatment [...] better. Weight loss vs. 18 mo Lifestyle 10.3 (01/21/2019 10:46 AM No Adilia Leung FNP max (lbs) >= 10 EDT) Note: This is an individualized lifestyle goal for Juliane Ling: Your body mass index (BMI) is more than 30. You should lose weight. A reasonable starting goal is to lose 10 pounds. Displayed above is how many pounds you have lost thus far towards your 10 pound weight loss goal. Keep immunizations current Lifestyle No Adilia Leung FNP Note: This [...] of this encounter Implants Implanted Type Area Draw Hand Device Shelf Model / Identifier Expiration Serial / Lot Date Bone Cement, Double 80gm - [id number] Bilateral DEPUY [id number] / Implanted: Qty: 2 on 04/14/2008 at [facility] : Knee / [id number] Femoral Comp Lps Flex Opt F-R - [id number] Right: [facility] 5764- 016-52 / Implanted: Qty: 1 on 04/14/2008 at [facility] [employer] / [id number] Patella, 32mm Nexgen - [id number] Right: [facility] / Implanted: Qty: 1 on 04/14/2008 at [facility] / [id number] Prolong Surface Lps Ef 5/6 10m - [id number] Right: [facility] 5962- 040-10 / Implanted: Qty: 1 on 04/14/2008 at [facility] [employer] / [id number] Tibial Plate Size 5 Nexgen - [id number] Right: [facility] 5980-47- 01 / Implanted: Qty: 1 on 04/14/2008 at [facility] / [id number] Patella, 32mm Nexgen - [id number] Left: [facility] / Implanted: Qty: 1 on 04/14/2008 at [facility] [facility] / [id number] Femoral Comp Lps Flex Opt F-L - [id number] Left: [facility] 5764-016 -51 / Implanted: Qty: 1 on 04/14/2008 at [facility] [employer] / [id number] Tibial Plate Size 5 Nexgen - [id number] Left: [facility] 5980-47- 01 / Implanted: Qty: 1 on 04/14/2008 at [facility] [employer] / [id number] Prolong Surface Lps Ef 5/6 10m - [id number] Left: [facility] 5962- 040-10 / Implanted: Qty: 1 on 04/14/2008 at [facility] [employer] [employer] / [id number] documented as of this encounter Results Not on filedocumented in this encounter Visit Diagnoses Diagnosis Acute bronchitis, unspecified organism - Primary Diabetes mellitus without complication (HCC) Type II or unspecified type diabetes mellitus without mention of complication, not stated as uncontrolled documented in this encounter Insurance Payer Benefit Plan / Subscriber ID Effective Phone Address Type Group Dates MEDICARE MEDICARE PART A xxxxxxxxxxx 2012-Pres Medicare & B ent COMMERCIAL COMMERCIAL xxxxxxxxx Effective for Commercial GENERIC GENERIC PLAN all dates (Home) [address] [phone] [place], [place] (Work) [address] documented as of this encounter
--- NOTE | 2019-03-02 13:00 | UC ---
Eye Complaint HPI - HPI Summary HPI Summary: 73 yo female presents with URI symptoms. She tells me that for the last week she has had sinus pain/pressure/congestion, right ear pain, and a dry cough. Right ear pain has gotten worse. Last night she noticed some right eye redness, but this morning had crusting and yellow drainage with increased redness. She has not been taking anything OTC for her symptoms. Denies fever, chills, SOB, rash, vomiting, diarrhea, dysuria. - History of Current Complaint Stated Complaint: EYE ISSUE Time Seen by Provider: 03/02/19 12:59 Hx Obtained From: Patient Onset/Duration: Gradual Onset Severity Initially: Moderate Severity Currently: Moderate Pain Intensity: 6 Pain Scale Used: 0-10 Numeric - Allergies/Home Medications Allergies/Adverse Reactions: Allergies Allergy/AdvReac Type Severity Reaction Status Date / Time Sulfa (Sulfonamide Allergy Rash Verified 03/02/19 13:07 Antibiotics) PMH/Surg Hx/FS Hx/Imm Hx Endocrine History: Diabetes Cardiovascular History: Hypertension Psychological History: Anxiety, Depression - Surgical History Surgical History: Yes Surgery Procedure, Year, and Place: 04/2006 [facility] [place] - gastric lap band surgery - Family History Known Family History: Negative: Hypertension - Social History Occupation: Retired Lives: With Family Alcohol Use: Rare Substance Use Type: None Smoking Status (MU): Former Smoker Type: Cigarettes Have You Smoked in the Last Year: Yes Review of Systems All Other Systems Reviewed And Are Negative: No Constitutional: Positive: Negative Skin: Positive: Negative Eyes: Positive: Drainage, Eye Redness ENT: Positive: Ear Ache, Nasal Discharge, Sinus Congestion Respiratory: Positive: Cough Cardiovascular: Positive: Negative Gastrointestinal: Positive: Negative Neurological: Positive: Negative Psychological: Positive: Negative Physical Exam - Summary Physical Exam Summary: GENERAL: WDWN. No pain distress. SKIN: No rashes, sores, lesions, or open wounds. HEENT: Head: AT/NC Eyes: EOM intact. PERRLA. RIGHT EYE: Moderate scleral injection. Conjunctiva with moderate erythema and inflammation. Moderate yellow discharge. Ears: Hearing grossly normal. RIGHT TM with moderate erythema and bulging. LEFT TM with mild erythema and bulging. Nose: Nasal mucosa mildly swollen and erythematous with yellow discharge. TTP maxillary sinus. Positive post nasal drip Throat: Posterior oropharynx without exudates, erythema, or tonsillar enlargement. Uvula midline. NECK: Supple. Nontender. No lymphadenopathy. CHEST: Mild wheezing throughout. No r/r. No accessory muscle use. Breathing comfortably and in no distress. CV: Pulses intact. Cap refill <2seconds NEURO: Alert. PSYCH: Age appropriate behavior. Triage Information Reviewed: Yes Vital Signs: Vital Signs: Temp Pulse Resp BP Pulse Ox 98 F 110 18 170/73 97 03/02/19 13:04 03/02/19 13:04 03/02/19 13:04 03/02/19 13:04 03/02/19 13:04 Vital Signs: Temp Pulse Resp BP Pulse Ox 99.1 F 81 18 170/73 97 03/02/19 13:59 03/02/19 13:59 03/02/19 13:04 03/02/19 13:04 03/02/19 13:04 Vital Signs Reviewed: Yes Diagnostics - Radiology CXR Radiology Interpretation Completed By: ED Physician Summary of Radiographic Findings: No PNA Eye Complaint Course/Dx - Course Course Of Treatment: CXR wet read negative. Right conjunctivitis. Sinusitis. Otitis media right>Left. Will place her on anbx eye drops and Augmentin. Recommend f/u in 2 days with her PCP for a recheck - Differential Dx/Diagnosis Provider Diagnosis: Right conjunctivitis, Otitis media Discharge ED - Sign-Out/Discharge Documenting (check all that apply): Patient Departure All imaging exams completed and their final reports reviewed: No - Discharge Plan Condition: Stable Disposition: HOME Prescriptions: Amoxicillin/Clavulanate TAB* [Augmentin TAB 875*] 875 mg PO BID #14 tab Ofloxacin 0.3% (Eye Drop) [Ocuflox OPTH 0.3% (Eye Drop)] 2 drop RIGHT EYE QID # 1 btl Patient Education Materials: Ear Infection (ED), Conjunctivitis (ED) Referrals: Carlos Silva MD [Primary Care Provider] - 2 Days Additional Instructions: If you develop a fever, shortness of breath, chest pain, new or worsening symptoms - please call your PCP or go to the ED immediately. Your blood pressure was high at todays visit. Please see your primary provider within 4 weeks for recheck and re-evaluation. I recommend that you be rechecked by your primary doctor in 2-3 days - Billing Disposition and Condition Condition: STABLE Disposition: Home - Attestation Statements Provider Attestation: I was available for consult. This patient was seen by the [facility]. The patient was not presented to , seen by or examined by -Kevin Bueno MD
[2019-03-02 13:07] VITALS: BP 170/73
== END 2019-03-02 13:52 | disposition home or self-care (01) ==
LOC: UCEAST 11:44
DX: H10.9 Unspecified conjunctivitis (principal); H66.91 Otitis media, unspecified, right ear; E11.9 Type 2 diabetes mellitus without complications; I10 Essential (primary) hypertension; R09.81 Nasal congestion; R06.2 Wheezing; R09.82 Postnasal drip; Z88.2 Allergy status to sulfonamides; Z87.891 Personal history of nicotine dependence
CPT/HCPCS: 71046; 99212; G0463

== ENCOUNTER 2019-04-25 05:21 | Inpatient (IN) | payer MEDICARE, OTHER ==
[2019-04-25] MEDS ORDERED: Ondansetron INJ* 2 MG/ML VIAL IV ONE (07:09)
[2019-04-25] MEDS ORDERED: Morphine 4 MG/ML VIAL (1 ml) 4 MG/ML VIAL IV ONE ×2 (07:09→08:29)
[2019-04-25] MEDS ORDERED: Lactated Ringers 1000 ML Bag* 1,000 ML IV SCH (08:00)
[2019-04-25 08:08] LABS: ABS Basophils 0.1 10^3/ul (0-0.2); ABS Lymphocytes 1.8 10^3/ul (1.0-4.8); ABS Monocytes 0.8 10^3/ul (0-0.8); ABS Neutrophils 12.1 10^3/ul (1.5-7.7); Eosinophil % 0.3 %; Hematocrit 45 % (35-47); Hemoglobin 15.1 g/dL (12.0-16.0); Lymphocyte % 12.2 %; Mean Corpuscular HGB Conc 34 g/dL (31-36); Mean Corpuscular Hemoglobin 30 pg (27-31); Mean Corpuscular Volume 88 fL (80-97); Nucleated Red Blood Cells % 0.1; Platelet Count 296 10^3/uL (150-450); Red Blood Count 5.04 10^6 /uL (3.70-4.87); Red Cell Distribution Width 15 % (10-15); White Blood Count 14.9 10^3/uL (3.5-10.8)
[2019-04-25 08:19] LABS: Albumin 4.1 g/dL (3.2-5.2); Albumin/Globulin Ratio 1.2 (1-3); BUN/Creatinine Ratio 21.1 (8-20); C Reactive Protein 23.86 mg/L (<8.01); Calcium 9.5 mg/dL (8.6-10.3); EGFR African American 74.5 (>60); EGFR Non-African American 61.5 (>60); Globulin 3.3 g/dL (2-4); Magnesium 1.9 mg/dL (1.9-2.7); Potassium 4.2 mmol/L (3.5-5.0); Total Bilirubin 0.9 mg/dL (0.2-1.0); Total Protein 7.4 g/dL (6.4-8.9)
[2019-04-25] MEDS ORDERED: NS 0.9% 1000 ML** 1,000 ML IV ONE (08:46)
[2019-04-25] MEDS ORDERED: Iodixanol* (CONTRAST) 320 MG/ML 100 ML SDV IV ONE (08:58)
--- NOTE | 2019-04-25 12:30 | ED ---
Abdominal Pain/Female - HPI Summary HPI Summary: Patient is a 74-year-old female with a history of LAP-BAND surgery [address] Gonzalez, ovarian cyst surgery/removal 25 years ago presenting to the ED with 2-3 day hx of n/v. Also endorsing L sided abd pain radiating throughout. Worse now to the epigastric region s/p vomiting. Has not taken any of her medications in the past 3 days. Last BM 2 days ago. Last emesis was approximately 3 hours prior to arrival. Denies any hematemesis, melena, hematochezia. Denies any history of diverticulitis. No complications with LAP- BAND surgery. Patient denies any fevers, sweats, chills. No known hernia. - History of Current Complaint Chief Complaint: EDAbdPain Stated Complaint: VOMITING Time Seen by Provider: 04/25/19 06:38 Hx Obtained From: Patient ?: No Timing: Constant Severity Initially: Moderate Severity Currently: Mild Pain Intensity: 0 Pain Scale Used: 0-10 Numeric Location: Other - left sided Radiates: No Character: Sharp, Cramping Aggravating Factor(s): Nothing Alleviating Factor(s): Nothing Associated Signs and Symptoms: Positive: Negative, Decreased Appetite, Nausea, Vomiting. Negative: Fever, Cough, Chest Pain, Back Pain, Constipation, Blood in Stool, Urinary Symptoms - Risk Factors Ectopic Risk Factor: Negative Ovarian Torsion Risk Factor: Negative Allergies/Adverse Reactions: Allergies Allergy/AdvReac Type Severity Reaction Status Date / Time Sulfa (Sulfonamide Allergy Rash Verified 03/02/19 13:07 Antibiotics) Home Medications: Home Medications Atorvastatin* [Lipitor*] 20 mg PO DAILY 04/25/19 [History Confirmed 04/25/19] Diclofenac Sodium EC TAB* [Voltaren EC TAB*] 50 mg PO BID PRN 04/25/19 [History Confirmed 04/25/19] Econazole 1% CREAM (NF) [Econazole 1 % CREAM (NF)] 1 applic TOPICAL BID PRN [History Confirmed 04/25/19] Ergocalciferol CAP* [Drisdol CAP*] 50,000 units PO DAILY 04/25/19 [History Confirmed 04/25/19] L.acidoph,Paracasei, B.lactis [Probiotic] 1 each PO DAILY 04/25/19 [History Confirmed 04/25/19] Omeprazole CAP (NF) [Prilosec CAP* 20 MG] 20 mg PO DAILY 04/25/19 [History Confirmed 04/25/19] metFORMIN* [Glucophage 500 MG TAB *] 500 mg PO BID 04/25/19 [History Confirmed 04/25/19] PMH/Surg Hx/FS Hx/Imm Hx Previously Healthy: Yes Endocrine/Hematology History: Reports: Hx Diabetes Cardiovascular History: Reports: Hx Hypertension - on meds Respiratory History: Reports: Hx Sleep Apnea - current CPAP user GI History: Reports: Other GI Disorders - S/P lap band surgery History: Denies: Hx Renal Disease Musculoskeletal History: Reports: Hx Arthritis Sensory History: Reports: Hx Contacts or Glasses Opthamlomology History: Reports: Hx Contacts or Glasses Psychiatric History: Reports: Hx Anxiety - Surgical History Surgery Procedure, Year, and Place: 04/2006 [facility] - gastric lap band surgery. ovarian cyst removed L side - Immunization History Hx Pertussis Vaccination: No Immunizations Up to Date: Yes Infectious Disease History: No Infectious Disease History: Denies: Traveled Outside the [place] in Last 30 Days - Family History Known Family History: Negative: Hypertension - Social History Occupation: Unemployed Lives: With Family Alcohol Use: Rare Hx Substance Use: No Substance Use Type: Reports: None Hx Tobacco Use: Yes Smoking Status (MU): Former Smoker Type: Cigarettes Have You Smoked in the Last Year: Yes Review of Systems Negative: Fever, Chills, Fatigue, Skin Diaphoresis Negative: Palpitations, Chest Pain Negative: Shortness Of Breath, Cough Positive: Abdominal Pain, Vomiting, Nausea. Negative: Diarrhea Positive: no symptoms reported Negative: Arthralgia, Myalgia Skin: Negative Neurological: Negative All Other Systems Reviewed And Are Negative: Yes Physical Exam Triage Information Reviewed: Yes Vital Signs On Initial Exam: Initial Vitals Temp Pulse Resp BP Pulse Ox 98.0 F 95 18 141/70 98 04/25/19 05:57 04/25/19 05:57 04/25/19 05:57 04/25/19 05:57 04/25/19 05:57 Vital Signs Reviewed: Yes Appearance: Positive: Well-Appearing, Well-Nourished Skin: Positive: Warm, Skin Color Reflects Adequate Perfusion Head/Face: Positive: Normal Head/Face Inspection Eyes: Positive: EOMI, STEVEN, Conjunctiva Clear Neck: Positive: Supple, No Lymphadenopathy Respiratory/Lung Sounds: Positive: Clear to Auscultation, Breath Sounds Present Cardiovascular: Positive: RRR, Pulses are Symmetrical in both Upper and Lower Extremities Abdomen Description: Positive: Other: - tednerness throughout on palpation. Negative: CVA Tenderness (R), CVA Tenderness (L), Distended, Guarding Bowel Sounds: Positive: Present Musculoskeletal: Positive: Strength/ROM Intact Neurological: Positive: Speech Normal Psychiatric: Positive: Affect/Mood Appropriate Procedures - Sedation Patient Received Moderate/Deep Sedation with Procedure: No Diagnostics - Vital Signs Vital Signs Temp Pulse Resp BP Pulse Ox 04/25/19 09:04 88 138/69 94 04/25/19 09:00 126 94 04/25/19 08:43 16 04/25/19 08:00 86 94 04/25/19 07:50 82 95 04/25/19 07:18 16 04/25/19 06:30 81 178/80 94 04/25/19 05:57 98.0 F 95 18 141/70 98 - Laboratory Lab Results: Lab Results 04/25/19 04/25/19 04/25/19 Range/Units 07:30 07:30 07:30 WBC 14.9 H (3.5-10.8) 10^3/uL RBC 5.04 H (3.70-4.87) 10^6 /uL Hgb 15.1 (12.0-16.0) g/dL Hct 45 (35-47) % MCV 88 (80-97) fL MCH 30 (27-31) pg MCHC 34 (31-36) g/dL RDW 15 (10-15) % Plt Count 296 (150-450) 10^3/uL MPV 8.0 (7.4-10.4) fL Neut % (Auto) 81.5 % Lymph % (Auto) 12.2 % [place] % (Auto) 5.6 % Eos % (Auto) 0.3 % Baso % (Auto) 0.4 % Absolute Neuts (auto) 12.1 H (1.5-7.7) 10^3/ul Absolute Lymphs (auto) 1.8 (1.0-4.8) 10^3/ul Absolute Monos (auto) 0.8 (0-0.8) 10^3/ul Absolute Eos (auto) 0.0 (0-0.6) 10^3/ul Absolute Basos (auto) 0.1 (0-0.2) 10^3/ul Absolute Nucleated RBC 0.0 10^3/ul Nucleated RBC % 0.1 Sodium 137 (135-145) mmol/L Potassium 4.2 (3.5-5.0) mmol/L Chloride 103 (101-111) mmol/L Carbon Dioxide 23 (22-32) mmol/L Anion Gap 11 (2-11) mmol/L BUN 19 (6-24) mg/dL Creatinine 0.90 (0.51-0.95) mg/dL Est GFR ( Amer) 74.5 (>60) Est GFR (Non-Af Amer) 61.5 (>60) BUN/Creatinine Ratio 21.1 H (8-20) Glucose 181 H (70-100) mg/dL Lactic Acid 1.4 (0.5-2.0) mmol/L Calcium 9.5 (8.6-10.3) mg/dL Magnesium 1.9 (1.9-2.7) mg/dL Total Bilirubin 0.90 (0.2-1.0) mg/dL AST 21 (13-39) U/L ALT 26 (7-52) U/L Alkaline Phosphatase 77 (34-104) U/L C-Reactive Protein 23.86 H (<8.01) mg/L Total Protein 7.4 (6.4-8.9) g/dL Albumin 4.1 (3.2-5.2) g/dL Globulin 3.3 (2-4) g/dL Albumin/Globulin Ratio 1.2 (1-3) Lipase 12 (11.0-82.0) U/L Result Diagrams: 04/25/19 07:30 04/25/19 07:30 Lab Statement: Any lab studies that have been ordered have been reviewed, and results considered in the medical decision making process. Abdominal Pain Fem Course/Dx - Course Course Of Treatment: During the course of treatment, patient is evaluated for mid to left-sided abdominal pain, nausea, vomiting. Patient hasn't had these symptoms in the past. She states she has had some intermittent abdominal pain, however never this long and never associated with nausea and vomiting. Labs obtained which show an elevated white count. She is given morphine, Zofran and lactated Ringer's. CT abdomen/pelvis: Small bowel obstruction, with a ventral hernia containing loops of small bowel with a transition point appears just distal to the hernia sac. She is subsequently given more morphine as well as normal saline. Surgery was consulted to see and ED. Patient is kept NPO. Appears comfortable. Will be admitted to surgery service. - Diagnoses Differential Diagnosis: Positive: Other - constipation, hernia, n/v Provider Diagnoses: SBO (small bowel obstruction) - Provider Notifications Discussed Care Of Patient With: Ana Juarez Instructed by Provider To: MD Will See In ED Discharge ED - Sign-Out/Discharge Documenting (check all that apply): Patient Departure - Discharge Plan Condition: Fair Disposition: ADMITTED TO [facility] Referrals: Carlos Silva MD [Primary Care Provider] - - Billing Disposition and Condition Condition: FAIR Disposition: Admitted to [facility]
[2019-04-25] MEDS ORDERED: Dextrose 50% VIAL 50 ml IV PUSH PRN (15:23)
[2019-04-25] MEDS ORDERED: Albuterol HFA INHALER* 8 gm MDI INH PRN (15:24)
[2019-04-25] MEDS ORDERED: hydrALAZINE IV* 20 MG/ML VIAL IV SLOW PU PRN (15:30)
[2019-04-25] MEDS ORDERED: HYDROmorphone INJ1* 1 MG/ML SYRINGE IV SLOW PU PRN (15:36)
[2019-04-25] MEDS ORDERED: Ondansetron INJ* 2 MG/ML VIAL IV PRN (15:36)
--- NOTE | 2019-04-25 15:54 | ED ---
Progress - Progress Note Progress Note: The patient is being seen by ZOE Montes, for abdominal pain with diagnosed SBO per CT results today. She states that she has been having pain in the abdomen for about a month, and she had never been told she was obstructed or had a hernia. She notes abdominal surgery for ovarian cyst in 1994, laparoscopic gastric band in 2006. Her symptoms worsened today with nausea and vomiting that have since subsided with medication in the ED. Arielle has admitted the patient for surgery. Patient is comfortable at this time as she is speaking with Dr. Lopez from surgery. Course/Dx - Course Course Of Treatment: The patient is being seen by ZOE Montes, for abdominal pain with diagnosed SBO per CT results today. She states that she has been having pain in the abdomen for about a month, and she had never been told she was obstructed or had a hernia. She notes abdominal surgery for ovarian cyst in 1994, laparoscopic gastric band in 2006. Her symptoms worsened today with nausea and vomiting that have since subsided with medication in the ED. Arielle has admitted the patient for surgery. Patient is comfortable at this time as she is speaking with Dr. Lopez from surgery. - Diagnoses Provider Diagnoses: SBO (small bowel obstruction) - Provider Notifications Instructed by Provider To: MD Will See In ED Discharge ED - Sign-Out/Discharge Documenting (check all that apply): Patient Departure - Patient accepted for admission. - Discharge Plan Condition: Fair Disposition: ADMITTED TO [facility] Referrals: Carlos Silva MD [Primary Care Provider] - - Attestation Statements Document Initiated by Scribe: Yes Documenting Scribe: Harika Harris Provider For Whom Karol is Documenting (Include Credential): Dr. Price Rome MD Scribe Attestation: Harika Cabrera scribed for Dr. Price Rome MD on 04/25/19 at 1556. Status of Scribe Document: Ready Procedures - Sedation Patient Received Moderate/Deep Sedation with Procedure: No
--- NOTE | 2019-04-25 16:22 | HP ---
H&P (Free Text) History and Physical: History and Physical / General Surgery Diagnosis:SBO/Hernia Chief Complaint: Abdominal Pain HPI:74 yo female with 2 day hx of N/V, Diarrhea yesterday, @ day hx abd pain, left sided, sharp at first, then crampy. not in pain at time of my initial exam or at subsequent exam. Pain Was epigastric at time of vomiting. Reports Lap Band Sx over [address] Gonzalez Is comfortable in bed at time of exam PMH: HTN, DM, GERD, ^ CHOL, Anxiety, OA, Chronic NSAIDS PSH: : Lap Band, Ovarian Cyst, B/L TKA SOCIAL HX: TOB neg ETOH neg DRUGS neg FAMILY HISTORY: Sister with Cervical Cancer, Mother with Breast Cancer. no history of bleeding or anesthesia problems. ALLERGIES: Sulfa MEDICATIONS: NSAIDS see attached MAR for reg home meds ROS: Other than as per HPI a 14 point Review of Systems was negative PHYSICAL EXAM: VS: Temp Pulse Resp BP Pulse Ox 98.0 F 80 16 156/73 96 04/25/19 05:57 04/25/19 15:21 04/25/19 08:43 04/25/19 15:21 04/25/19 15:21 Gen: Morbidly obese female on bed in ED in NAD HEENT: NCAT, neck supple. 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 PLAN: Admit to surgery, conservative non operative management, NPO, OOB-Ambulate , will consider NG Tube if vomits, caution needed due to Lap Band, Hospitalist consult for Medical management. Above D/W Dr Lopez, please see her note for recommendations.
--- NOTE | 2019-04-25 16:32 | CONS ---
CC: Dr. Silva; Dr. Lopez, Surgery; Dr. Juarez, Surgery * CONSULTATION REPORT: DATE OF CONSULT: 04/25/19 PRIMARY CARE PROVIDER: Dr. Silva. REQUESTING PHYSICIAN: Dr. Lopez from General Surgery. CHIEF COMPLAINT: Abdominal pain, nausea, vomiting. HISTORY OF PRESENT ILLNESS: Juliane Ling is a 74-year-old female with history of status post sleeve gastrectomy performed 13 years ago, who stated that for the past 2 days she has been having problems with crampy abdominal pain, nausea , and vomiting. She had been unable to keep anything down for 2 days. Her bowel movement was over 24 hours ago and was loose. She complains of diffuse abdominal cramping more so localized in the left side of her abdomen where her abdominal hernia is. Her nausea has somewhat improved after Zofran treatment in the ED. The medicine consult was requested due to the patient's problems with history of hypertension and diabetes. PAST MEDICAL HISTORY: 1. History of sleeve gastrectomy 13 years ago. 2. Diabetes type 2. 3. Hypertension. 4. Left-sided ovarian cyst removed remotely. 5. Obstructive sleep apnea, on CPAP. 6. Bilateral knee replacement in the past. MEDICATIONS AT HOME: Include: 1. Albuterol inhaler on a p.r.n. basis. 2. Lipitor 20 mg daily. 3. Celexa 20 mg daily. 4. Voltaren tablet 50 mg b.i.d. p.r.n. 5. Econazole cream 1 application b.i.d. p.r.n. 6. Ergocalciferol 50,000 units p.o. daily. 7. Lisinopril 20 mg daily. 8. Metformin 500 mg b.i.d. 9. Omeprazole 20 mg daily. 10. Probiotic 1 capsule b.i.d. 11. Ultram 100 mg every 6 hours p.r.n. ALLERGIES: SULFA. FAMILY HISTORY: Positive for father who at the age of 95 secondary to a stroke, mother who in her 80s with history of breast cancer and secondary to Alzheimer's. SOCIAL HISTORY: The patient denies any tobacco, alcohol, or drug use. She lives with her , Yury Ling, who is her surrogate. She is a full code. She is currently retired. REVIEW OF SYSTEMS: Please see history of present illness. All the remaining 12 systems were reviewed with the patient and were otherwise negative. PHYSICAL EXAM: Blood pressure of 156/73, heart rate of 80 and regular, respiratory rate 16, oxygen saturation 96% on room air, temperature of 98. General: The patient is a very pleasant 74-year-old female, who is in no acute distress. Alert, awake, and oriented x3, with a BMI of 49. HEENT: Head: Atraumatic, normocephalic. Eyes: Pupils are equal, reactive to light and accommodation. Oropharynx is clear. Mucosa dry. Neck: Supple. No JVD. No bruits bilaterally. Cardiovascular: Regular rate and rhythm. No murmur. Respiratory: Clear to auscultation bilaterally. Abdomen is soft, distended, protuberant. Tender diffusely, but more so on palpation of the area left to the umbilicus in midline. There is no rebound, no guarding. Bowel sounds are present in all 4 quadrants. Extremities: There is bilateral ankle trace edema. Pulses are +2 bilaterally. No clubbing or cyanosis. On neuro evaluation, speech is clear. Cranial nerves II through XII grossly intact. Motor strength is 5/5 bilaterally. DIAGNOSTIC STUDIES/LAB DATA: Sodium of 137, potassium of 4.2, chloride 103, carbon dioxide 23, BUN 19, creatinine 0.9. Liver function tests unremarkable. Lactic acid 1.4. C-reactive protein of 23. CBC: White blood cell count of 14.9, hemoglobin of 15.1, hematocrit of 45, and platelets of 296. CT of the abdomen and pelvis, impression: "Small bowel obstruction with a ventral hernia containing loops of small bowel. The transition point appears distal to the hernia sac. Hepatomegaly with fatty infiltration of the liver." ASSESSMENT AND PLAN: 1. Small bowel obstruction. It is going to be managed by General Surgery. 2. In regards to the patient's hypertension, we will stop her p.o. blood pressure medications and place the patient on hydralazine on a p.r.n. basis. 3. For the patient's diabetes, the patient is going to be placed on fingersticks every 8 hours. Her metformin is going to be held. 4. For DVT prophylaxis, the patient is going to be placed on heparin subcutaneously. 5. The patient's code status is full and her surrogate is her . Thank you very much for allowing our service to see your patient in consultation. We will follow up with the patient daily. TIME SPENT: Approximately 65 minutes was spent on the patient's consultation. [id number]/[facility] #: [id number] CASSIA
[2019-04-25] MEDS: NS 0.9% 1000 ML** 1,000 ML IV SCH (16:43)
[2019-04-25] MEDS: Pantoprazole IV* 40 MG IV SCH (16:53)
--- NOTE | 2019-04-25 17:30 | PN ---
Progress Note - Progress Note Date of Service: 04/25/19 Note: Surgery Progress Note Please see full dictated history and physical by Chinoce Thomas, but briefly patient is a 74 yo F with a history of DM, HTN, morbid obesity (s/p lap band by Dr. Gonzalez in 2006 or ) who presented to the ED with complaints of 2 days of nausea, emesis and left sided abdominal pain. She says that she last vomited this morning arund 4am. She last had a BM about 2 days ago. She has a hernia ( she noticed this as a bulge) for about 1-2 months. In the ED she was found to have a small bowel obstruction with a transition point near the hernia sac. I reviewed the imaging with radiology and it does not appear that the transition point is within the sac. On exam the patient has normal VS, appears comfortable and has an extremely obese abdomen with multiple skin excoriations ( she says from her dog). On abdominal exam I believe I may have reduced a hernia to the right of her midline but it is hard to tell given how obese she is -- it is hard to feel the defect of the hernia. She has a well healed lower midline incision. At this point we will hold an NGT-- with a lap band I am not certain it will be that helpful and she is currently comfortable, does not have significant pain and has no vomiting. We will admit the patient, place on IVF and await return of bowel function. Hopefully she will not require operative intervention. She understands this plan and agrees. We appreciate medicine's consultation and co-management of her chronic medical conditions.
[2019-04-25] MEDS: Insulin LISPRO* 1 UNITS UNIT SUBCUT SCH (22:24)
[2019-04-25] MEDS: Heparin VIAL(*) 5000 UNITS/ML VIAL (FIVE THOUSAND) SUBCUT SCH (22:24)
[2019-04-26] MEDS: NS 0.9% 1000 ML** 1,000 ML IV SCH ×2 (01:12→16:05)
[2019-04-26] MEDS: Heparin VIAL(*) 5000 UNITS/ML VIAL (FIVE THOUSAND) SUBCUT SCH ×3 (05:39→22:23)
[2019-04-26 05:43] LABS: Albumin 3.2 g/dL (3.2-5.2); CO2 Carbon Dioxide 21 mmol/L (22-32); Calcium 7.9 mg/dL (8.6-10.3); Chloride 108 mmol/L (101-111); Sodium 138 mmol/L (135-145)
[2019-04-26 05:48] LABS: ALT 22 U/L (7-52); Albumin/Globulin Ratio 1.5 (1-3); Alkaline Phosphatase 63 U/L (34-104); BUN/Creatinine Ratio 18.7 (8-20); Blood Urea Nitrogen 17 mg/dL (6-24); EGFR African American 73.5 (>60); EGFR Non-African American 60.8 (>60); Globulin 2.2 g/dL (2-4); Glucose 131 mg/dL (70-100); Total Protein 5.4 g/dL (6.4-8.9)
[2019-04-26] MEDS: Insulin LISPRO* 1 UNITS UNIT SUBCUT SCH ×3 (05:48→21:06)
[2019-04-26 05:50] LABS: Anion Gap 9 mmol/L (2-11)
[2019-04-26 06:40] LABS: ABS Basophils 0.1 10^3/ul (0-0.2); ABS Eosinophils 0.2 10^3/ul (0-0.6); ABS Lymphocytes 2.3 10^3/ul (1.0-4.8); ABS Monocytes 0.7 10^3/ul (0-0.8); ABS Neutrophils 5.8 10^3/ul (1.5-7.7); Eosinophil % 2.7 %; Hematocrit 37 % (35-47); Hemoglobin 12.7 g/dL (12.0-16.0); Lymphocyte % 25.6 %; Mean Corpuscular HGB Conc 34 g/dL (31-36); Mean Corpuscular Hemoglobin 30 pg (27-31); Mean Corpuscular Volume 87 fL (80-97); Mean Platelet Volume 7.9 fL (7.4-10.4); Platelet Count 235 10^3/uL (150-450); Red Blood Count 4.26 10^6 /uL (3.70-4.87); Red Cell Distribution Width 15 % (10-15); White Blood Count 9.1 10^3/uL (3.5-10.8)
[2019-04-26 07:03] LABS: Potassium Redraw 3.8 mmol/L (3.5-5.0)
[2019-04-26] MEDS: Citalopram TAB* 20 MG PO SCH (08:15)
[2019-04-26] MEDS: Pantoprazole IV* 40 MG IV SCH (08:16)
--- NOTE | 2019-04-26 08:31 | PN ---
Progress Note - Progress Note Date of Service: 04/26/19 SOAP: Subjective: Patient reports to be doing well. Denies any nausea or vomiting. States that she is not in any pain and feels ready to eat. She has passed flatus and has had two loose bowel movements. Objective: Vital Signs: Temp Pulse Resp BP Pulse Ox 97.2 F 79 17 158/67 98 04/26/19 07:52 04/26/19 07:52 04/26/19 07:52 04/26/19 07:52 04/26/19 07:52 General: Patient is sitting in chair in no acute distress. CV:RRR Resp.: CTAB Abdomen: Obese. Mildly tender in the LUQ. Unable to palpate hernia due to body habitus and sitting position. Laboratory Tests 04/25/19 04/26/19 04/26/19 07:30 05:12 06:13 WBC 14.9 H 9.1 Sodium 138 Potassium TNP Chloride 108 Carbon Dioxide 21 L Anion Gap 9 BUN 17 Creatinine 0.91 Est GFR ( Amer) 73.5 Est GFR (Non-Af Amer) 60.8 BUN/Creatinine Ratio 18.7 Glucose 131 H Calcium 7.9 L Total Bilirubin 0.80 AST TNP ALT 22 Alkaline Phosphatase 63 Total Protein 5.4 L Albumin 3.2 Globulin 2.2 Albumin/Globulin Ratio 1.5 Assessment: This is a 74 year old female with PMH of DM, HTN, obesity and hx of lap band ( 2006 or 2007), HD#2 who presented with an incarcerated abdominal/incisional hernia that resulted in a SBO. She is currently stable and bowels are moving well. Plan: Will speak to Dr. Lopez about advancing patients diet. Continue OOB ambulation.
--- NOTE | 2019-04-26 08:39 | PN ---
Subjective Date of Service: 04/26/19 Interval History: Pt feels much better, had 3 loose BM's and passed lots of flatus last night denies abd pain Objective Active Medications: Albuterol (Ventolin Hfa Inhaler*) 2 puff INH Q4H PRN PRN Reason: SHORTNESS OF BREATH Citalopram Hydrobromide (Celexa Tab*) 20 mg PO DAILY [facility] Last Admin: 04/26/19 08:15 Dose: 20 mg Dextrose (Dextrose 50% Vial 50 Ml*) 25 ml IV PUSH .FOR FS < 60 - SS PRN PRN Reason: FS < 60 Heparin Sodium (Porcine) (Heparin Vial(*)) 5,000 units SUBCUT Q8HR [facility] Last Admin: 04/26/19 05:39 Dose: 5,000 units Hydralazine HCl (Apresoline Iv*) 5 mg IV SLOW PU Q6H PRN PRN Reason: BLOOD PRESSURE Hydromorphone HCl (Dilaudid Inj1s*) 0.5 mg IV SLOW PU Q1H PRN PRN Reason: PAIN - SEVERE Sodium Chloride (Ns 0.9% 1000 Ml) 1,000 mls @ 75 mls/hr IV PER RATE [facility] Last Admin: 04/26/19 01:12 Dose: 75 mls/hr Insulin Human Lispro (Humalog*) 0 units SUBCUT Q8HR [facility]; Protocol Last Admin: 04/26/19 05:48 Dose: 1 units Ondansetron HCl (Zofran Inj*) 4 mg IV Q4H PRN PRN Reason: NAUSEA/VOMITING Pantoprazole Sodium (Protonix Iv*) 40 mg IV DAILY [facility] Last Admin: 04/26/19 08:16 Dose: 40 mg Vital Signs - 8 hr 04/26/19 04/26/19 03:07 07:52 Temperature 98.2 F 97.2 F Pulse Rate 86 79 Respiratory 18 17 Rate Blood Pressure 144/71 158/67 (mmHg) O2 Sat by Pulse 93 98 Oximetry Oxygen Devices in Use Now: None Appearance: 74 yo F in nAD, aAOx3 Eyes: No Scleral Icterus, PERRLA Ears/Nose/Mouth/Throat: NL Teeth, Lips, Gums, Mucous Membranes Moist Neck: NL Appearance and Movements; NL JVP, Trachea Midline Respiratory: Symmetrical Chest Expansion and Respiratory Effort, Clear to Auscultation Cardiovascular: NL Sounds; No Murmurs; No JVD, RRR Abdominal: - - obese, protruberanty, soft, mild tenderness to left of umbilicus present, no rebound, no guarding, BS+ Lymphatic: No Cervical Adenopathy Extremities: No Clubbing, Cyanosis, - - trace ankle edema b/l Skin: No Rash or Ulcers Neurological: Alert and Oriented x 3, NL Muscle Strength and Tone Result Diagrams: 04/26/19 06:13 04/26/19 06:13 Additional Lab and Data: Lab Results 04/25/19 04/25/19 04/25/19 Range/Units 07:30 07:30 07:30 WBC 14.9 H (3.5-10.8) 10^3/uL RBC 5.04 H (3.70-4.87) 10^6 /uL Hgb 15.1 (12.0-16.0) g/dL Hct 45 (35-47) % MCV 88 (80-97) fL MCH 30 (27-31) pg MCHC 34 (31-36) g/dL RDW 15 (10-15) % Plt Count 296 (150-450) 10^3/uL MPV 8.0 (7.4-10.4) fL Neut % (Auto) 81.5 % Lymph % (Auto) 12.2 % [place] % (Auto) 5.6 % Eos % (Auto) 0.3 % Baso % (Auto) 0.4 % Absolute Neuts (auto) 12.1 H (1.5-7.7) 10^3/ul Absolute Lymphs (auto) 1.8 (1.0-4.8) 10^3/ul Absolute Monos (auto) 0.8 (0-0.8) 10^3/ul Absolute Eos (auto) 0.0 (0-0.6) 10^3/ul Absolute Basos (auto) 0.1 (0-0.2) 10^3/ul Absolute Nucleated RBC 0.0 10^3/ul Nucleated RBC % 0.1 Sodium 137 (135-145) mmol/L Potassium 4.2 (3.5-5.0) mmol/L Chloride 103 (101-111) mmol/L Carbon Dioxide 23 (22-32) mmol/L Anion Gap 11 (2-11) mmol/L BUN 19 (6-24) mg/dL Creatinine 0.90 (0.51-0.95) mg/dL Est GFR ( Amer) 74.5 (>60) Est GFR (Non-Af Amer) 61.5 (>60) BUN/Creatinine Ratio 21.1 H (8-20) Glucose 181 H (70-100) mg/dL Lactic Acid 1.4 (0.5-2.0) mmol/L Calcium 9.5 (8.6-10.3) mg/dL Magnesium 1.9 (1.9-2.7) mg/dL Total Bilirubin 0.90 (0.2-1.0) mg/dL AST 21 (13-39) U/L ALT 26 (7-52) U/L Alkaline Phosphatase 77 (34-104) U/L C-Reactive Protein 23.86 H (<8.01) mg/L Total Protein 7.4 (6.4-8.9) g/dL Albumin 4.1 (3.2-5.2) g/dL Globulin 3.3 (2-4) g/dL Albumin/Globulin Ratio 1.2 (1-3) Lipase 12 (11.0-82.0) U/L Assess/Plan/Problems-Billing Assessment: 74 yo F with h/o gastric sleeve surgery 13 years ago, DM2, HTN presented with SBO - Patient Problems (1) SBO (small bowel obstruction) Comment: appears to be resolving Awaiting surgery's decision to advance diet (2) HTN (hypertension) Comment: cont hydralazine prn Holding PO meds for NPO (3) DM2 (diabetes mellitus, type 2) Comment: cont ISS, holding PO meds (4) DVT prophylaxis Comment: HSQ Status and Disposition: Medicine consult
--- NOTE | 2019-04-26 11:47 | PN ---
Progress Note - Progress Note Date of Service: 04/26/19 Note: Subjective: She is feeling well. Has passed loose BM and flatus. Denies pain, nausea, vomiting, fever, chills, weakness. Is ambulating. Objective: Laboratory Last Values WBC 9.1 10^3/uL (3.5-10.8) 04/26/19 06:13 RBC 4.26 10^6 /uL (3.70-4.87) 04/26/19 06:13 Hgb 12.7 g/dL (12.0-16.0) 04/26/19 06:13 Hct 37 % (35-47) 04/26/19 06:13 MCV 87 fL (80-97) 04/26/19 06:13 MCH 30 pg (27-31) 04/26/19 06:13 MCHC 34 g/dL (31-36) 04/26/19 06:13 RDW 15 % (10-15) 04/26/19 06:13 Plt Count 235 10^3/uL (150-450) 04/26/19 06:13 MPV 7.9 fL (7.4-10.4) 04/26/19 06:13 Neut % (Auto) 63.3 % 04/26/19 06:13 Lymph % (Auto) 25.6 % 04/26/19 06:13 [place] % (Auto) 7.5 % 04/26/19 06:13 Eos % (Auto) 2.7 % 04/26/19 06:13 Baso % (Auto) 0.9 % 04/26/19 06:13 Absolute Neuts (auto) 5.8 10^3/ul (1.5-7.7) 04/26/19 06:13 Absolute Lymphs (auto) 2.3 10^3/ul (1.0-4.8) 04/26/19 06:13 Absolute Monos (auto) 0.7 10^3/ul (0-0.8) 04/26/19 06:13 Absolute Eos (auto) 0.2 10^3/ul (0-0.6) 04/26/19 06:13 Absolute Basos (auto) 0.1 10^3/ul (0-0.2) 04/26/19 06:13 Absolute Nucleated RBC 0.0 10^3/ul 04/26/19 06:13 Nucleated RBC % 0.0 04/26/19 06:13 Sodium 138 mmol/L (135-145) 04/26/19 05:12 Potassium 3.8 mmol/L (3.5-5.0) 04/26/19 06:13 Chloride 108 mmol/L (101-111) 04/26/19 05:12 Carbon Dioxide 21 mmol/L (22-32) L 04/26/19 05:12 Anion Gap 9 mmol/L (2-11) 04/26/19 05:12 BUN 17 mg/dL (6-24) 04/26/19 05:12 Creatinine 0.91 mg/dL (0.51-0.95) 04/26/19 05:12 Est GFR ( Amer) 73.5 (>60) 04/26/19 05:12 Est GFR (Non-Af Amer) 60.8 (>60) 04/26/19 05:12 BUN/Creatinine Ratio 18.7 (8-20) 04/26/19 05:12 Glucose 131 mg/dL (70-100) H 04/26/19 05:12 POC Glucose (mg/dL) 139 mg/dL (70-100) H 04/26/19 05:39 Lactic Acid 1.4 mmol/L (0.5-2.0) 04/25/19 07:30 Calcium 7.9 mg/dL (8.6-10.3) L 04/26/19 05:12 Magnesium 1.9 mg/dL (1.9-2.7) 04/25/19 07:30 Total Bilirubin 0.80 mg/dL (0.2-1.0) 04/26/19 05:12 AST 19 U/L (13-39) 04/26/19 06:13 ALT 22 U/L (7-52) 04/26/19 05:12 Alkaline Phosphatase 63 U/L (34-104) 04/26/19 05:12 C-Reactive Protein 23.86 mg/L (<8.01) H 04/25/19 07:30 Total Protein 5.4 g/dL (6.4-8.9) L 04/26/19 05:12 Albumin 3.2 g/dL (3.2-5.2) 04/26/19 05:12 Globulin 2.2 g/dL (2-4) 04/26/19 05:12 Albumin/Globulin Ratio 1.5 (1-3) 04/26/19 05:12 Lipase 12 U/L (11.0-82.0) 04/25/19 07:30 Vital Signs - 8 hr 04/26/19 04/26/19 07:52 08:00 Temperature 97.2 F Pulse Rate 79 Respiratory 17 17 Rate Blood Pressure 158/67 (mmHg) O2 Sat by Pulse 98 Oximetry Intake and Output Last 24 Hours 04/24/19 04/25/19 04/26/19 04/27/19 06:59 06:59 06:59 06:59 Intake Total 1500 Output Total 800 Balance 700 Weight 320 lb 320 lb Intake: IV Fluids 1500 NS (0.9%) 500 Oral 0 Output: Urine 800 Other: Date of Last Bowel t-1 Movement # Bowel Movements 1 1 Estimated Stool Amount Small Medium PEX: General: Alert, in NAD or discomfort Integumentary: No rashes, jaundice, or lesions HEENT: Oropharynx clear Heart: RRR, no MRG Lungs: CTA, no WRR ABD: Soft, mildly tender around umbilicus. Bowel sounds present. No rebound tenderness or guarding. Extremities: Calves nontender. Distal pulses intact bilaterally. Assessment and plan: SBO appears to be resolving. Starting on clear liquids; will possibly further advance later today, as tolerated.
[2019-04-26] MEDS ORDERED: Dextrose 50% Syringe 50 ML* 25 GM/50 ML SYRINGE IV PUSH PRN (12:48)
[2019-04-26 20:22] LABS: Urine Appearance Cloudy; Urine Bilirubin Negative (Negative); Urine Blood Negative (Negative); Urine Color Yellow; Urine Glucose Negative (Negative); Urine Ketones Negative (Negative); Urine Nitrite Negative (Negative); Urine Protein Negative (Negative); Urine Specific Gravity 1.031 (1.010-1.030); Urine Urobilinogen Negative (Negative)
[2019-04-26 20:28] LABS: Urine Bacteria 2+ (Absent); Urine Red Blood Cell Absent (Absent); Urine Squamous Epithelial Cell Present (Absent); Urine White Blood Cell Trace(0-5/hpf) (Absent)
[2019-04-27] MEDS: Heparin VIAL(*) 5000 UNITS/ML VIAL (FIVE THOUSAND) SUBCUT SCH (05:47)
[2019-04-27 07:31] VITALS: BP 154/67
[2019-04-27] MEDS: Pantoprazole IV* 40 MG IV SCH (07:40)
[2019-04-27] MEDS: Citalopram TAB* 20 MG PO SCH (07:40)
--- NOTE | 2019-04-27 08:46 | PN ---
Subjective Date of Service: 04/27/19 Objective Active Medications: Albuterol (Ventolin Hfa Inhaler*) 2 puff INH Q4H PRN Citalopram Hydrobromide (Celexa Tab*) 20 mg PO DAILY [facility] Dextrose (D50w Syringe 50 Ml*) 12.5 gm IV PUSH .FOR FS < 60 - SS PRN Heparin Sodium (Porcine) (Heparin Vial(*)) 5,000 units SUBCUT Q8HR [facility] Hydralazine HCl (Apresoline Iv*) 5 mg IV SLOW PU Q6H PRN Hydromorphone HCl (Dilaudid Inj1s*) 0.5 mg IV SLOW PU Q1H PRN Sodium Chloride (Ns 0.9% 1000 Ml) 1,000 mls @ 75 mls/hr IV PER RATE [facility] Insulin Human Lispro (Humalog*) 0 units SUBCUT ACHS [facility]; Protocol Ondansetron HCl (Zofran Inj*) 4 mg IV Q4H PRN Pantoprazole Sodium (Protonix Iv*) 40 mg IV DAILY [facility] Vital Signs: Temp Pulse Resp BP Pulse Ox 97.8 F 70 18 154/67 97 04/27/19 07:30 04/27/19 07:30 04/27/19 07:40 04/27/19 07:30 04/27/19 07:30 Oxygen Devices in Use Now: None Result Diagrams: 04/26/19 06:13 04/26/19 06:13 Additional Lab and Data: Vital Signs: Temp Pulse Resp BP Pulse Ox 97.8 F 70 18 154/67 97 04/27/19 07:30 04/27/19 07:30 04/27/19 07:40 04/27/19 07:30 04/27/19 07:30 Assess/Plan/Problems-Billing Assessment: Ms. Ling is a 74 yo F with h/o gastric sleeve surgery 13 years ago, DM2, HTN who was admitted on 04/25/19 with a SBO. - Patient Problems (1) SBO (small bowel obstruction) Comment: - Appears to be resolving - Advanced to soft diet (2) DM2 (diabetes mellitus, type 2) Comment: - BGs 130s - Cont lispro SSI coverage, resume po meds at discharge (3) HTN (hypertension) Comment: - SBP 150 - Resume lisinopril, stop IV hydralazine (4) DVT prophylaxis Comment: - HSQ (5) Full code status Comment: Status and Disposition: Inpatient, Disposition per surgery
[2019-04-27] MEDS: Insulin LISPRO* 1 UNITS UNIT SUBCUT SCH (09:17)
--- NOTE | 2019-04-27 10:24 | PN ---
Progress Note - Progress Note Date of Service: 04/27/19 SOAP: Subjective: Pt seen and examined. Feeling well. no nausea, pos BM Objective: Temp Pulse Resp BP Pulse Ox 97.8 F 70 18 154/67 97 04/27/19 07:30 04/27/19 07:30 04/27/19 07:40 04/27/19 07:30 04/27/19 07:30 lungs clear b/l abdo: obese, nontender, reducible ventral hernia Assessment: resolving SBO Plan: d/c home f/u at [facility]
[2019-04-28] MEDS ORDERED: Atorvastatin* 20 MG TAB PO SCH (09:00)
[2019-04-28] MEDS ORDERED: Pantoprazole TAB * 40 MG TAB PO SCH (09:00)
[2019-04-28] MEDS ORDERED: Lisinopril TAB* 10 MG PO SCH (09:00)
== END 2019-04-27 12:21 | disposition home or self-care (01) | DRG 394 ==
LOC: ED 05:21 → SSU 15:06
PROVIDERS: ADMIT Surgery; ATTEND Surgery
PROC: 5A09357 Assistance with Respiratory Ventilation, Less than 24 Consecutive Hours, Continuous Positive Airway Pressure (ICD-10-PCS; principal; 2019-04-27)
DX: K43.0 Incisional hernia with obstruction, without gangrene (principal); Z68.42 Body mass index [BMI] 45.0-49.9, adult; E11.9 Type 2 diabetes mellitus without complications; I10 Essential (primary) hypertension; M19.90 Unspecified osteoarthritis, unspecified site; F41.9 Anxiety disorder, unspecified; K21.9 Gastro-esophageal reflux disease without esophagitis; Z96.653 Presence of artificial knee joint, bilateral; E66.01 Morbid (severe) obesity due to excess calories; G47.33 Obstructive sleep apnea (adult) (pediatric); Z87.891 Personal history of nicotine dependence; Z88.2 Allergy status to sulfonamides; Z79.84 Long term (current) use of oral hypoglycemic drugs; Z79.899 Other long term (current) drug therapy
CPT/HCPCS: 36415; 74018; 74177; 80053; 81003; 81015; 83605; 83690; 83735; 85025; 86140; 87077; 87086; 87186; 94660; 99284; A9270-GY; J1644; J2270; J2405; Q9967

== ENCOUNTER 2019-04-29 08:27 | Inpatient (IN) | payer MEDICARE, OTHER ==
[2019-04-29] MEDS ORDERED: Ondansetron INJ* 2 MG/ML VIAL IV ONE (08:52)
[2019-04-29] MEDS ORDERED: NS 0.9% 1000 ML** 1,000 ML IV ONE (08:52)
[2019-04-29 09:17] LABS: ABS Eosinophils 0.1 10^3/ul (0-0.6); ABS Lymphocytes 1.1 10^3/ul (1.0-4.8); ABS Monocytes 0.6 10^3/ul (0-0.8); ABS Neutrophils 7.6 10^3/ul (1.5-7.7); Eosinophil % 0.5 %; Hematocrit 43 % (35-47); Hemoglobin 14.5 g/dL (12.0-16.0); Mean Corpuscular HGB Conc 34 g/dL (31-36); Mean Corpuscular Hemoglobin 30 pg (27-31); Mean Corpuscular Volume 88 fL (80-97); Mean Platelet Volume 7.8 fL (7.4-10.4); Platelet Count 301 10^3/uL (150-450); Red Blood Count 4.87 10^6 /uL (3.70-4.87); Red Cell Distribution Width 15 % (10-15); White Blood Count 9.4 10^3/uL (3.5-10.8)
[2019-04-29 09:33] LABS: Albumin/Globulin Ratio 1.2 (1-3); BUN/Creatinine Ratio 14.9 (8-20); Calcium 9.4 mg/dL (8.6-10.3); EGFR African American 77.4 (>60); Globulin 3.4 g/dL (2-4); Potassium 4.1 mmol/L (3.5-5.0); Total Bilirubin 0.6 mg/dL (0.2-1.0); Total Protein 7.4 g/dL (6.4-8.9)
[2019-04-29] MEDS ORDERED: Morphine 4 MG/ML VIAL (1 ml) 4 MG/ML VIAL IV ONE (09:46)
--- NOTE | 2019-04-29 10:05 | ED ---
Abdominal Pain/Female - HPI Summary HPI Summary: Patient is a 74-year-old female who presents emergency department for return home abdominal pain, nausea and vomiting times one day. Patient was [place] [facility] [place] small bowel obstruction. Patient was treated conservatively with bowel rest and obstruction resolved. Patient states she felt fine first day of discharge was having normal bowel movements but last night started again with abdominal pain and has had 2 episodes of vomiting. Patient denies chest pain, shortness of breath, fever. Past surgical history of lap band and ovarian cyst resection. Patient was noted to have a ventral hernia on CT scan that was reduced by surgery at last visit. Symptoms are moderate in severity. No current modifying factors. - History of Current Complaint Chief Complaint: EDAbdPain Stated Complaint: BOWEL OBSTRUCTION PER PT Time Seen by Provider: 04/29/19 08:37 Hx Obtained From: Patient Pain Intensity: 6 Allergies/Adverse Reactions: Allergies Allergy/AdvReac Type Severity Reaction Status Date / Time Sulfa (Sulfonamide Allergy Rash Verified 04/29/19 08:53 Antibiotics) PMH/Surg Hx/FS Hx/Imm Hx Previously Healthy: Yes Endocrine/Hematology History: Reports: Hx Diabetes Cardiovascular History: Reports: Hx Hypertension - on meds Respiratory History: Reports: Hx Sleep Apnea - current CPAP user GI History: Reports: Other GI Disorders - S/P lap band surgery 2009? History: Denies: Hx Renal Disease Musculoskeletal History: Reports: Hx Arthritis Sensory History: Reports: Hx Contacts or Glasses Denies: Hx Hearing Aid, Hx Hearing Problem Opthamlomology History: Reports: Hx Contacts or Glasses Psychiatric History: Reports: Hx Anxiety - Surgical History Surgery Procedure, Year, and Place: 04/2006 [facility] [place] surgery. ovarian cyst removed L side Hx Anesthesia Reactions: No - Immunization History Date of Influenza Vaccine: 2019 Immunizations Up to Date: Yes Infectious Disease History: No Infectious Disease History: Denies: Hx of Known/Suspected MRSA, Traveled Outside the [place] in Last 30 Days - Family History Known Family History: Negative: Hypertension - Social History Alcohol Use: None Hx Substance Use: No Substance Use Type: Reports: None Hx Tobacco Use: Yes Smoking Status (MU): Never Smoked Tobacco Type: Cigarettes Have You Smoked in the Last Year: Yes Review of Systems Constitutional: Negative Negative: Fever Cardiovascular: Negative Negative: Chest Pain Respiratory: Negative Negative: Shortness Of Breath Positive: Abdominal Pain, Vomiting, Nausea Genitourinary: Negative Neurological: Negative All Other Systems Reviewed And Are Negative: Yes Physical Exam Triage Information Reviewed: Yes Vital Signs On Initial Exam: Initial Vitals Temp Pulse Resp BP Pulse Ox 97.1 F 80 19 156/92 94 04/29/19 08:32 04/29/19 08:32 04/29/19 08:32 04/29/19 08:32 04/29/19 08:32 Vital Signs Reviewed: Yes Appearance: Positive: Well-Appearing - Pt. lying on bed in NAD> present. Skin: Positive: Warm, Dry Head/Face: Positive: Normal Head/Face Inspection Eyes: Positive: Normal, EOMI Neck: Positive: Supple Respiratory/Lung Sounds: Positive: Clear to Auscultation, Breath Sounds Present Cardiovascular: Positive: Normal, RRR Abdomen Description: Positive: Other: - Morbidly obese. Abd. is soft with tenderness periumbilical. I do not apprecitate palpable hernia or abd. wall defect. Neurological: Positive: Normal, CN Intact II-III Psychiatric: Positive: Affect/Mood Appropriate Procedures - Sedation Patient Received Moderate/Deep Sedation with Procedure: No Diagnostics - Vital Signs Vital Signs Temp Pulse Resp BP Pulse Ox 04/29/19 09:46 99 171/86 92 04/29/19 09:00 79 94 04/29/19 08:47 85 95 04/29/19 08:46 85 168/82 95 04/29/19 08:32 97.1 F 80 19 156/92 94 - Laboratory Lab Results: Lab Results 04/29/19 04/29/19 Range/Units 08:56 09:04 WBC 9.4 (3.5-10.8) 10^3/uL RBC 4.87 (3.70-4.87) 10^6 /uL Hgb 14.5 (12.0-16.0) g/dL Hct 43 (35-47) % MCV 88 (80-97) fL MCH 30 (27-31) pg MCHC 34 (31-36) g/dL RDW 15 (10-15) % Plt Count 301 (150-450) 10^3/uL MPV 7.8 (7.4-10.4) fL Neut % (Auto) 81.2 % Lymph % (Auto) 12.0 % [place] % (Auto) 6.0 % Eos % (Auto) 0.5 % Baso % (Auto) 0.3 % Absolute Neuts (auto) 7.6 (1.5-7.7) 10^3/ul Absolute Lymphs (auto) 1.1 (1.0-4.8) 10^3/ul Absolute Monos (auto) 0.6 (0-0.8) 10^3/ul Absolute Eos (auto) 0.1 (0-0.6) 10^3/ul Absolute Basos (auto) 0.0 (0-0.2) 10^3/ul Absolute Nucleated RBC 0.0 10^3/ul Nucleated RBC % 0.0 Sodium 139 (135-145) mmol/L Potassium 4.1 (3.5-5.0) mmol/L Chloride 106 (101-111) mmol/L Carbon Dioxide 23 (22-32) mmol/L Anion Gap 10 (2-11) mmol/L BUN 13 (6-24) mg/dL Creatinine 0.87 (0.51-0.95) mg/dL Est GFR ( Amer) 77.4 (>60) Est GFR (Non-Af Amer) 64.0 (>60) BUN/Creatinine Ratio 14.9 (8-20) Glucose 161 H (70-100) mg/dL Calcium 9.4 (8.6-10.3) mg/dL Total Bilirubin 0.60 (0.2-1.0) mg/dL AST 25 (13-39) U/L ALT 33 (7-52) U/L Alkaline Phosphatase 79 (34-104) U/L Total Protein 7.4 (6.4-8.9) g/dL Albumin 4.0 (3.2-5.2) g/dL Globulin 3.4 (2-4) g/dL Albumin/Globulin Ratio 1.2 (1-3) Lipase 14 (11.0-82.0) U/L Result Diagrams: 04/29/19 08:56 04/29/19 09:04 Lab Statement: Any lab studies that have been ordered have been reviewed, and results considered in the medical decision making process. Abdominal Pain Fem Course/Dx - Course Course Of Treatment: Patient with return of abdominal pain and vomiting. She is afebrile stable vital signs. CT abd.pelvis 04/25/19:IMPRESSION: 1. SMALL BOWEL OBSTRUCTION, WITH A VENTRAL HERNIA CONTAINING LOOPS OF SMALL BOWEL. THE. TRANSITION POINT APPEARS CHEST DISTAL TO THE HERNIA SAC. 2. HEPATOMEGALY WITH FATTY INFILTRATION OF THE LIVER. XR per radiology: Report: #. Dilated LEFT side small bowel loops measuring up to 6.7 cm diameter concerning for. proximal small bowel obstruction possibly secondary to the LEFT para midline ventral. hernia. #. Postsurgical change of gastric banding bariatric surgery. #. No suspicious calcifications or mass effect. IMPRESSION: #. Dilated LEFT side small bowel loops measuring up to 6.7 cm diameter, increased over. the daily 2019 exam, concerning for proximal small bowel obstruction possibly secondary. to the LEFT para midline ventral hernia. Case discussed with oncall surg, Dr. Juarez, she would like repeat CT with PO contrast. Pt. admitted to hospitalist service, Dr. Tovar. - Diagnoses Differential Diagnosis: Positive: Bowel Obstruction, Constipation Provider Diagnoses: Small bowel obstruction Discharge ED - Sign-Out/Discharge Documenting (check all that apply): Patient Departure - Discharge Plan Condition: Stable Disposition: ADMITTED TO OCCIDENTAL MEDICAL Referrals: Carlos Silva MD [Primary Care Provider] - - Billing Disposition and Condition Condition: STABLE Disposition: Admitted to [facility]
[2019-04-29] MEDS ORDERED: Iodixanol* (CONTRAST) 320 MG/ML 100 ML SDV IV ONE (10:44)
[2019-04-29] MEDS ORDERED: Morphine INJ* 2 MG/ML 1 ML SYRINGE (TWO MG - NEW SYRINGE VERSION) IV PRN (11:06)
[2019-04-29] MEDS ORDERED: PROCHLORPERAZINE INJ 5 MG/ML 2 ML VIAL IV PRN (11:06)
[2019-04-29] MEDS ORDERED: Dextrose 50% Syringe 50 ML* 25 GM/50 ML SYRINGE IV PUSH PRN (11:08)
[2019-04-29] MEDS: NS 0.9% 1000 ML** 1,000 ML IV SCH ×2 (12:22→21:58)
--- NOTE | 2019-04-29 13:04 | CONSULT ---
Consult Consult: REASON FOR CONSULTATION: Bowel obstruction DATE OF CONSULTATION: 04/29/19 HPI: Juliane Ling is a 74 year-old woman with a history of HTN, DM, and morbid obesity who presents to the ED with abdominal pain, nausea, and vomiting. She was admitted on April 25 with a bowel obstruction due to ventral hernia. She was treated conservatively, and by hospital day 2, her symptoms had resolved. She was discharged two days ago on April 27. She reports last night she began having abdominal pain, nausea, and vomiting again after dinner. She vomited once last night and this morning. Her abdomen has become distended again. She also had diarrhea this morning. She returned to the ED this morning. She denies fevers at home. She resumed her usual diet after she was discharged. She denies chest pain or shortness of breath. In the ED, abdominal xray showed dilated loops of small bowel. She reports that she still has left-sided abdominal pain. The nausea has improved quite a bit, and she has been able to drink oral contrast. No emesis since arrivavl to the ED. PMH: HTN, DM, morbid obesity PSH: Ex lap for ruptured ovarian cyst in . Placement of lap band in 2006. B /l knee replacements. Home Medications Medication Instructions Recorded Confirmed Type Citalopram TAB* [Celexa TAB*] 20 mg PO DAILY 03/12/12 04/29/19 History Lisinopril TAB* [Prinivil TAB 10 20 mg PO DAILY 03/12/12 04/29/19 History MG*] traMADol TAB* [Ultram*] 100 mg PO Q6H PRN MDD 8 tabs 03/12/12 04/29/19 History Albuterol HFA INHALER* [Ventolin 2 puff INH Q4H PRN #1 mdi 09/18/16 04/29/19 Rx HFA Inhaler*] Atorvastatin* [Lipitor 20 MG*] 20 mg PO DAILY 04/25/19 04/29/19 History Diclofenac Sodium EC TAB* 50 mg PO BID PRN 04/25/19 04/29/19 History [Voltaren EC TAB*] Econazole 1% CREAM (NF) [Econazole 1 applic TOPICAL BID PRN 04/25/19 04/29/19 History 1 % CREAM (NF)] Ergocalciferol CAP* [Drisdol CAP*] 50,000 units PO WEEKLY 04/25/19 04/29/19 History L.acidoph,Paracasei, B.lactis 1 each PO DAILY 04/25/19 04/29/19 History [Probiotic] Omeprazole CAP (NF) [Prilosec CAP* 20 mg PO DAILY 04/25/19 04/29/19 History 20 MG] metFORMIN* [Glucophage 500 MG TAB 500 mg PO BID 04/25/19 04/29/19 History *] Allergies Sulfa (Sulfonamide Antibiotics) Allergy (Verified 04/29/19 08:53) Rash FH: Father from stroke. Mother had breast cancer and Alzheimer's disease. SH: Lives with . Denies tobacco, alcohol, or drug use. ROS: 10-point review of systems was obtained. Pertinent positives and negatives are in HPI. PHYSICAL EXAM: Vitals: 97.1F, HR 74, RR 20, BP 144/79 General: No acute distress. Lying on stretcher. Head: Normocephalic and atraumatic Eyes: Pupils are equal. No scleral icterus. Mouth: Moist mucous membranes. Neck: Trachea midline. CV: Regular rate and rhythm. Chest: Clear to auscultation bilaterally. Abdomen: Soft, obese. Upper abdomen seems moderately distended. There is a well -healed midline incision. Tenderness to palpation in the supraumbilical region and left upper quadrant. No rebound or guarding. I am unable to palpate a hernia defect due to body habitus. Skin: Warm and dry. Extremities: Mild pedal edema. Warm. Neuro: Alert and oriented 3. Laboratory Results - last 24 hr 04/29/19 04/29/19 04/29/19 08:56 09:04 14:12 WBC 9.4 RBC 4.87 Hgb 14.5 Hct 43 MCV 88 MCH 30 MCHC 34 RDW 15 Plt Count 301 MPV 7.8 Neut % (Auto) 81.2 Lymph % (Auto) 12.0 [place] % (Auto) 6.0 Eos % (Auto) 0.5 Baso % (Auto) 0.3 Absolute Neuts (auto) 7.6 Absolute Lymphs (auto) 1.1 Absolute Monos (auto) 0.6 Absolute Eos (auto) 0.1 Absolute Basos (auto) 0.0 Absolute Nucleated RBC 0.0 Nucleated RBC % 0.0 Sodium 139 Potassium 4.1 Chloride 106 Carbon Dioxide 23 Anion Gap 10 BUN 13 Creatinine 0.87 Est GFR ( Amer) 77.4 Est GFR (Non-Af Amer) 64.0 BUN/Creatinine Ratio 14.9 Glucose 161 H POC Glucose (mg/dL) 128 H Calcium 9.4 Total Bilirubin 0.60 AST 25 ALT 33 Alkaline Phosphatase 79 Total Protein 7.4 Albumin 4.0 Globulin 3.4 Albumin/Globulin Ratio 1.[address] abdomen/pelvis: There are dilated small bowel loops with a transition point at the level of the left parasagittal ventral hernia. A&P: 74-year-old with a small bowel obstruction likely secondary to ventral hernia. The obstruction could also be due to adhesions. The patient is interested in having the hernia repaired during this admission since she had a recurrence of her symptoms so quickly after discharge. It is unclear if she had recurrence of her symptoms due to her diet, a recurrent incarceration of bowel, or if the previous episode had not resolved completely prior to discharge. If the obstruction is due to adhesions, conservative management may still be successful. However, if there is incarcerated bowel, then she may need ventral hernia repair to resolve the symptoms definitively. There are no gross abnormalities on her CBC or BMP, and she is hemodynamically stable. I will plan to treat the bowel obstruction conservatively for now and find a time for ventral hernia repair with mesh during this admission if possible. I discussed with the patient that because of her body habitus she is at high risk for a recurrence of the hernia. Ideally the patient would be given time to lose weight before repairing the hernia. However, if the obstruction really is a result of the incarceration, then she may need hernia repair more acutely. -NPO. IVF -If patient becomes more nauseous or starts vomiting, may need NGT. -Medical optimization for ventral hernia repair likely during this admission.
[2019-04-29] MEDS ORDERED: hydrALAZINE IV* 20 MG/ML VIAL IV SLOW PU PRN (14:04)
[2019-04-29] MEDS: Heparin VIAL(*) 5000 UNITS/ML VIAL (FIVE THOUSAND) SUBCUT SCH ×2 (14:08→21:58)
[2019-04-29] MEDS: Insulin LISPRO* 1 UNITS UNIT SUBCUT SCH ×3 (14:13→21:57)
--- NOTE | 2019-04-29 19:48 | HP ---
CC: Dr. Silva; Dr. Juarez * HISTORY AND PHYSICAL: DATE OF ADMISSION: 04/29/19 PRIMARY CARE PROVIDER: Dr. Silva. CONSULTING GENERAL SURGEON: Dr. Juarez. TIME OF EVALUATION: 10:50 a.m. CHIEF COMPLAINT: "My belly is hurting again." HISTORY OF PRESENT ILLNESS: Ms. Ling is a 74 years old female with a past medical history of status post lap-band, type 2 diabetes, hypertension, obstructive sleep apnea on CPAP, left ovarian cyst removal, status post bilateral knee replacement who initially presented to the emergency room on with complaints of abdominal pain, nausea, and vomiting. She was found to have a small bowel obstruction and she was admitted for further evaluation and management. The patient was treated conservatively while in the hospital and she had improvement of her symptoms. She had a reducible ventral hernia and the plan was for her to be followed as outpatient to discuss surgical repair in the future. The patient states she was feeling well when she was discharged and thus she thinks that she ate more than she should have when she went home. She had cereal, mac and cheese, chicken, ice cream and she states that last night she started to have similar symptoms of abdominal pain that was then followed by recurrent nausea and vomiting. She denies fever, chills, chest pain, palpitations or other complaints. Her workup in the emergency room revealed recurrence of the small bowel obstruction and the hospitalist service was contacted for admission due to the patient's comorbidities. PAST MEDICAL HISTORY: 1. History of lap-band. 2. Type 2 diabetes. 3. Hypertension. 4. Morbid obesity with a BMI of 50.8. 5. Status post left ovarian cyst removal. 6. Obstructive sleep apnea, on CPAP. 7. Status post bilateral knee replacements. MEDICATIONS: 1. Albuterol 2 puffs inhaled q.4 hours p.r.n. shortness of breath. 2. Atorvastatin 20 mg p.o. daily. 3. Citalopram 20 mg p.o. daily. 4. Diclofenac 50 mg p.o. b.i.d. as needed for pain. 5. Econazole 1% cream topical b.i.d. as needed for rash. 6. Ergocalciferol 50,000 units p.o. daily. 7. Probiotics 1 tablet p.o. daily. 8. Lisinopril 20 mg p.o. daily. 9. Metformin 500 mg p.o. b.i.d. 10. Omeprazole 20 mg p.o. daily. 11. Tramadol 100 mg p.o. q.6 hours p.r.n. pain. ALLERGIES: With SULFA, the patient had a rash. FAMILY HISTORY: The patient's father at age 95 of a stroke, mother in her 80s, had a history of breast cancer and Alzheimer's. SOCIAL HISTORY: No history of tobacco, alcohol, or drug use. Surrogate decision maker is her Yury Ling, phone number is [phone]. REVIEW OF SYSTEMS: A 14-point review of systems was performed and all the pertinent negatives and positives findings are in the HPI. PHYSICAL EXAMINATION Physical examination is limited due to the patient's body habitus. GENERAL: The patient is a pleasant, elderly morbid obese lady, sitting up in the ED stretcher, in no acute distress. VITAL SIGNS: Temperature 97.9, heart rate is 78, respiratory rate is 20, oxygen saturation is 97% on 2 L, blood pressure is 155/69. HEENT: Pupils are equal. Dry mucous membranes. CHEST: Breath sounds bilaterally with no added sounds. CVS: Normal S1, S2. Regular rate and rhythm. ABDOMEN: Morbid obese, soft, distended. There is a ventral hernia around the area of her midline incision, that is tender to palpation, but reducible. Bowel sounds are present and sluggish. EXTREMITIES: Legs are puffy, but there is no pitting edema. NEURO: She is alert and oriented x3. Able to move all 4 extremities. DIAGNOSTIC STUDIES/LAB DATA: The patient had a CBC that showed a WBC 9.4, hemoglobin 14.5, hematocrit 43, platelets of 301 with 81% neutrophils. Chemistry showed sodium of 139 potassium of 4.1, chloride of 106, bicarb of 23, BUN of 13, creatinine of 0.8, glucose of 161, calcium 9.4. LFTs are normal. Lipase is 14. Abdomen x-ray shows dilated left-sided small bowel loops measuring up to 6.7 cm in diameter, increased over the x-ray from 04/26/19 concerning for proximal small bowel obstruction possibly secondary to the left paramidline ventral hernia. ASSESSMENT AND PLAN: Ms. Ling is a 74-year-old female with a past medical history of morbid obesity, type 2 diabetes, hypertension who was recently admitted to [facility] with a small bowel obstruction who presents to the emergency room with recurrence of symptoms. 1. Small bowel obstruction. I suspect this is likely secondary to her ventral hernia and this episode may have been precipitated by her diet at home including cereal, mac and cheese and chicken. I suspect this is probably going to recur even with a low-fiber diet. The patient will be admitted to the medical floor. We will keep her n.p.o. for now with symptomatic treatment and she will be seen in consultation by General Surgery. She will have a repeat CT of the abdomen and pelvis. 2. Type 2 diabetes. The patient will be n.p.o. and we will hold her metformin for now. She will have a lispro sliding scale with fingersticks q.4 hours. 3. Hypertension. The patient will be n.p.o. for now and we will hold her lisinopril. She will have hydralazine IV as needed if her blood pressure becomes uncontrolled. 4. DVT prophylaxis: The patient has a score of 3 on the DVT Prophylaxis Risk Assessment Guide and she will be started on subcutaneous heparin. 5. Code status is full. TIME SPENT: Approximately 50 minutes was spent with patient and her interview, medical records review, physical examination to complete this admission, more than half this time was spent [id number] with the patient and coordination of care. [id number] #: [id number] CASSIA
[2019-04-30] MEDS: Insulin LISPRO* 1 UNITS UNIT SUBCUT SCH ×6 (02:19→20:52)
[2019-04-30] MEDS: Heparin VIAL(*) 5000 UNITS/ML VIAL (FIVE THOUSAND) SUBCUT SCH ×3 (05:37→21:45)
[2019-04-30] MEDS: NS 0.9% 1000 ML** 1,000 ML IV SCH (07:51)
--- NOTE | 2019-04-30 09:14 | PN ---
Progress Note - Progress Note Date of Service: 04/30/19 Note: Large bowel movement last night and passing flatus this morning. Abdominal pain has mostly resolved. Denies nausea. Denies chest pain or shortness of breath. Asking for something to drink. Vital Signs - 12 hr Temp Pulse Resp BP Pulse Ox 04/30/19 07:52 16 04/30/19 07:28 98.2 F 70 16 140/60 97 04/30/19 03:17 98.4 F 78 18 137/56 97 04/29/19 23:18 99.0 F 77 18 119/36 95 General: NAD, sitting in chair CV: Regular rate and rhythm Chest: Clear to auscultation Abdomen: soft, obese. Tenderness to palpation supraumbilical region to the left of midline incision. Possible hernia at that site, unable to feel defect due to habitus. No rebound or guarding. Neuro: Alert, oriented x3 A&P 74F with small bowel obstruction, likely due to ventral hernia. Obstruction has resolved. -Will find a time for ventral hernia repair, possibly tomorrow afternoon. -May advance diet to clears as tolerated for today. NPO after midnight.
[2019-04-30] MEDS ORDERED: traMADol TAB* 50 MG PO PRN (10:40)
[2019-04-30] MEDS ORDERED: Albuterol HFA INHALER* 8 gm MDI INH PRN (10:40)
--- NOTE | 2019-04-30 12:44 | PN ---
Subjective Date of Service: 04/30/19 Interval History: HOSPITALIST PROGRESS NOTE Patient seen and examined at bedside. Care reviewed and d/w Lindsay Mack RN. She feels improved today. She had a large BM last night with significant improvement of her pain. Continues to pass flatus. N/V resolved. Family History: Unchanged from Admission Social History: Unchanged from Admission Past Medical History: Unchanged from Admission Objective Active Medications: Acetaminophen (Tylenol 650 Mg Supp) 650 mg [place] Q4H PRN PRN Reason: MILD PAIN or TEMP > 100.4 Albuterol (Ventolin Hfa Inhaler*) 2 puff INH Q4H PRN PRN Reason: SHORTNESS OF BREATH Atorvastatin Calcium (Lipitor*) 20 mg PO DAILY [facility] Citalopram Hydrobromide (Celexa Tab*) 20 mg PO DAILY [facility] Dextrose (D50w Syringe 50 Ml*) 12.5 gm IV PUSH .FOR FS < 60 - SS PRN PRN Reason: FS < 60 Econazole Nitrate (Econazole 1 % Cream (Nf)) 1 applic TOPICAL BID PRN PRN Reason: RASH Heparin Sodium (Porcine) (Heparin Vial(*)) 5,000 units SUBCUT Q8HR [facility] Last Admin: 04/30/19 05:37 Dose: 5,000 units Hydralazine HCl (Apresoline Iv*) 5 mg IV SLOW PU Q6H PRN PRN Reason: SBP>180 Sodium Chloride (Ns 0.9% 1000 Ml) 1,000 mls @ 100 mls/hr IV PER RATE [facility] Last Admin: 04/30/19 07:51 Dose: 100 mls/hr Insulin Human Lispro (Humalog*) 0 units SUBCUT ACHS [facility]; Protocol Last Admin: 04/30/19 12:27 Dose: Not Given Morphine Sulfate (Morphine Inj (Syringe))*) 1 mg IV Q1H PRN PRN Reason: PAIN - MODERATE Morphine Sulfate (Morphine Inj (Syringe))*) 2 mg IV Q1H PRN PRN Reason: PAIN - SEVERE Last Admin: 04/29/19 12:20 Dose: 2 mg Pantoprazole Sodium (Protonix Tab*) 40 mg PO DAILY [facility] Prochlorperazine Edisylate (Compazine Inj*) 5 mg IV Q6H PRN PRN Reason: NAUSEA/VOMITING Last Admin: 04/29/19 14:08 Dose: 5 mg Tramadol HCl (Ultram*) 100 mg PO Q6H PRN PRN Reason: PAIN Vital Signs - 8 hr 04/30/19 04/30/19 04/30/19 07:28 07:52 11:19 Temperature 98.2 F 97.9 F Pulse Rate 70 72 Respiratory 16 16 18 Rate Blood Pressure 140/60 138/55 (mmHg) O2 Sat by Pulse 97 97 Oximetry Oxygen Devices in Use Now: None Appearance: Pleasant morbid obese lady sitting up in a recliner in NAD Eyes: No Scleral Icterus Ears/Nose/Mouth/Throat: Mucous Membranes Moist Neck: Trachea Midline Respiratory: Symmetrical Chest Expansion and Respiratory Effort, Clear to Auscultation Cardiovascular: RRR - Normal S1 and S2 Abdominal: - - Morbid obese, soft, BS+ and active. Old, well healed surgical scar in the midline, probable area of incisional hernia, but body habitus limits physical examination Extremities: No Edema Neurological: Alert and Oriented x 3, NL Muscle Strength and Tone Result Diagrams: 04/29/19 08:56 04/29/19 09:04 Assess/Plan/Problems-Billing Assessment: Mrs Ling is a 74yo F with PMH of morbid obesity with BMI 50, s/p lap band, type 2 DM, HTN, CARMELITA on CPAP, s/p left ovarian cyst resection, recent admission for SBO, who presented to ED with c/o recurrent abdominal pain, N/V, found to have another episode of SBO. - Patient Problems (1) SBO (small bowel obstruction) Comment: - Surgery input appreciated. Her recurrent episode is likely associated with incisional hernia. Tentative plan foro hernia repair tomorrow. - Clinically SBO is resolved - start clear liquid diet and monitor. - She has no complaints of chest pain or dyspnea on exertion. EKG shows NSR at 67bpm with unspecific IVCD (not LBBB), and no acute ischemic changes. According to NSQIP calculator patient is at a 9.9% risk for any complications (average 6.2 %). RCRI is 0 predicting a risk of 0.4-0.5% risk of MACE. Although the patient is at a higher then average risk for complications, the fact her SBO has recurred in a short period of time indicates her hernia needs to be repaired. I believe the benefits of the procedure outweigh the risks and we discussed R/B/A. She's optimized for proposed hernia repair. (2) DM2 (diabetes mellitus, type 2) Comment: - Check A1c. - Continue Lispro SS. Goal to keep FS<180 in the periop period. (3) HTN (hypertension) Comment: - Controlled. - Lisinopril on hold for now - continue to monitor. (4) DVT prophylaxis Comment: - Continue SQ heparin. (5) Full code status Comment: Status and Disposition: Change to inpatient. updated at bedside. All questions answered to their satisfaction.
[2019-04-30] MEDS: ECONAZOLE 1% TOPICAL PRN (14:55)
--- NOTE | 2019-04-30 15:01 | PN ---
Progress Note - Progress Note Date of Service: 04/30/19 SOAP: Subjective: Patient reports to be much improved. Abdominal pain is minimal, and is significantly decreased from yesterday. She reports passing flatus. but has not had any bowel movements since yesterday. She has been tolerating a clear liquid diet well today without any nausea or vomiting. Objective: Vital Signs Temp 97.9 F 04/30/19 11:19 Pulse 72 04/30/19 11:19 Resp 18 04/30/19 11:19 BP 138/55 04/30/19 11:19 Pulse Ox 97 04/30/19 11:19 Intake & Output 04/29/19 04/30/19 04/30/19 18:59 06:59 18:59 Intake Total 2986 340 5955 Output Total 800 400 Balance 1010 103 900 Weight 315 lb Intake: IV Fluids 1010 903 980 NS (0.9%) 903 980 Oral 320 Output: Urine 800 400 Other: Estimated Void Small Date of Last Bowel 04/30/2019 Movement # Bowel Movements 1 Estimated Stool Amount Large Medium # Voids 1 Physical Exam: General: Pt sitting in chair in NAD CV: RRR, no murmurs, rubs or gallops Respiratory: CTAB, no rales, rhonchi or wheezes Abdomen: Soft, nondistended. Midline ventral incisional scar. Positive bowel sounds throughout. Mild tenderness to palpation in the periumbilical region just lateral to the incisional scar. No hernia palpated, exam limited by body habitus. Assessment: This is a 74 year old female HD #2 diagnosed with a small bowel obstruction likely due to a ventral hernia. She is stable and awaiting surgery on . Plan: Continue clear liquid diet as tolerated, NPO after midnight the night before surgery. Ambulate out of bed daily.
[2019-05-01 04:58] LABS: ABS Basophils 0.1 10^3/ul (0-0.2); ABS Eosinophils 0.3 10^3/ul (0-0.6); ABS Monocytes 0.5 10^3/ul (0-0.8); ABS Neutrophils 4.8 10^3/ul (1.5-7.7); Eosinophil % 3.4 %; Hematocrit 35 % (35-47); Hemoglobin 11.6 g/dL (12.0-16.0); Lymphocyte % 26.2 %; Mean Corpuscular HGB Conc 34 g/dL (31-36); Mean Corpuscular Hemoglobin 30 pg (27-31); Mean Corpuscular Volume 89 fL (80-97); Mean Platelet Volume 7.4 fL (7.4-10.4); Nucleated Red Blood Cells % 0.1; Platelet Count 237 10^3/uL (150-450); Red Blood Count 3.92 10^6 /uL (3.70-4.87); Red Cell Distribution Width 15 % (10-15); White Blood Count 7.6 10^3/uL (3.5-10.8)
[2019-05-01 05:07] LABS: Activated Partial Thrombo Time 35.6 seconds (26.0-38.0); INR 1.03 (0.82-1.09)
[2019-05-01 05:18] LABS: BUN/Creatinine Ratio 9.9 (8-20); Calcium 7.6 mg/dL (8.6-10.3); EGFR African American 97.9 (>60); EGFR Non-African American 80.9 (>60); Potassium 3.5 mmol/L (3.5-5.0)
[2019-05-01] MEDS: Heparin VIAL(*) 5000 UNITS/ML VIAL (FIVE THOUSAND) SUBCUT SCH ×3 (05:36→21:33)
[2019-05-01] MEDS: NS 0.9% 1000 ML** 1,000 ML IV SCH (06:56)
[2019-05-01] MEDS ORDERED: Insulin LISPRO* 1 UNITS UNIT SUBCUT SCH (08:00)
[2019-05-01] MEDS: Pantoprazole TAB * 40 MG TAB PO SCH (08:45)
[2019-05-01] MEDS: Atorvastatin* 20 MG TAB PO SCH (08:45)
[2019-05-01] MEDS: Citalopram TAB* 20 MG PO SCH (08:45)
--- NOTE | 2019-05-01 10:55 | PN ---
Subjective Date of Service: 05/01/19 Interval History: HOSPITALIST PROGRESS NOTE Patient seen and examined at bedside. Care reviewed and d/w Lindsay Mack RN. She offers no new complaints today. Family History: Unchanged from Admission Social History: Unchanged from Admission Past Medical History: Unchanged from Admission Objective Active Medications: Acetaminophen (Tylenol 650 Mg Supp) 650 mg [place] Q4H PRN PRN Reason: MILD PAIN or TEMP > 100.4 Albuterol (Ventolin Hfa Inhaler*) 2 puff INH Q4H PRN PRN Reason: SHORTNESS OF BREATH Atorvastatin Calcium (Lipitor*) 20 mg PO DAILY [facility] Last Admin: 05/01/19 08:45 Dose: 20 mg Citalopram Hydrobromide (Celexa Tab*) 20 mg PO DAILY [facility] Last Admin: 05/01/19 08:45 Dose: 20 mg Dextrose (D50w Syringe 50 Ml*) 12.5 gm IV PUSH .FOR FS < 60 - SS PRN PRN Reason: FS < 60 Econazole Nitrate (Econazole 1 % Cream (Nf)) 1 applic TOPICAL BID PRN PRN Reason: RASH Last Admin: 04/30/19 14:55 Dose: 1 applic Heparin Sodium (Porcine) (Heparin Vial(*)) 5,000 units SUBCUT Q8HR [facility] Hydralazine HCl (Apresoline Iv*) 5 mg IV SLOW PU Q6H PRN PRN Reason: SBP>180 Insulin Human Lispro (Humalog*) 0 units SUBCUT ACHS [facility]; Protocol Morphine Sulfate (Morphine Inj (Syringe))*) 1 mg IV Q1H PRN PRN Reason: PAIN - MODERATE Morphine Sulfate (Morphine Inj (Syringe))*) 2 mg IV Q1H PRN PRN Reason: PAIN - SEVERE Last Admin: 04/29/19 12:20 Dose: 2 mg Pantoprazole Sodium (Protonix Tab*) 40 mg PO DAILY [facility] Last Admin: 05/01/19 08:45 Dose: 40 mg Prochlorperazine Edisylate (Compazine Inj*) 5 mg IV Q6H PRN PRN Reason: NAUSEA/VOMITING Last Admin: 04/29/19 14:08 Dose: 5 mg Tramadol HCl (Ultram*) 100 mg PO Q6H PRN PRN Reason: PAIN Vital Signs - 8 hr 05/01/19 05/01/19 03:23 07:00 Temperature 97.9 F 97.6 F Pulse Rate 74 71 Respiratory 18 16 Rate Blood Pressure 162/65 138/62 (mmHg) O2 Sat by Pulse 94 97 Oximetry Oxygen Devices in Use Now: None Appearance: Pleasant morbid obese lady lying in bed in NAD Eyes: No Scleral Icterus Ears/Nose/Mouth/Throat: Mucous Membranes Moist Neck: Trachea Midline Respiratory: Symmetrical Chest Expansion and Respiratory Effort, Clear to Auscultation Cardiovascular: RRR - Normal S1 and S2 Abdominal: NL Sounds; No Tenderness; No Distention - morbid obese, mild tenderness on old surgical incision Neurological: Alert and Oriented x 3, NL Muscle Strength and Tone Result Diagrams: 05/01/19 04:53 05/01/19 04:53 Assess/Plan/Problems-Billing Assessment: Mrs Ling is a 74yo F with PMH of morbid obesity with BMI 50, s/p lap band, type 2 DM, HTN, CARMELITA on CPAP, s/p left ovarian cyst resection, recent admission for SBO, who presented to ED with c/o recurrent abdominal pain, N/V, found to have another episode of SBO. - Patient Problems (1) SBO (small bowel obstruction) Comment: - Surgery input appreciated. Her recurrent episode is likely associated with incisional hernia. Tentative plan for hernia repair tomorrow. - Clinically SBO is resolved - continue clear liquid diet and monitor. - She has no complaints of chest pain or dyspnea on exertion. EKG shows NSR at 67bpm with unspecific IVCD (not LBBB), and no acute ischemic changes. According to NSQIP calculator patient is at a 9.9% risk for any complications (average 6.2 %). RCRI is 0 predicting a risk of 0.4-0.5% risk of MACE. Although the patient is at a higher then average risk for complications, the fact her SBO has recurred in a short period of time indicates her hernia needs to be repaired. I believe the benefits of the procedure outweigh the risks and we discussed R/B/A. She's optimized for proposed hernia repair. (2) DM2 (diabetes mellitus, type 2) Comment: - Check A1c. - Continue Lispro SS. Goal to keep FS<180 in the periop period. (3) HTN (hypertension) Comment: - Controlled. - Lisinopril on hold for now - continue to monitor. (4) DVT prophylaxis Comment: - Continue SQ heparin. (5) Full code status Comment: Status and Disposition: Inpatient.
[2019-05-01] MEDS: ECONAZOLE 1% TOPICAL PRN (11:17)
--- NOTE | 2019-05-01 11:47 | PN ---
Progress Note - Progress Note Date of Service: 05/01/19 Note: Subjective: Reports that she is feeling well today. Mild discomfort when radha umbilical region pressed. No nausea, vomiting, fever, chills. Passing Flatus. No BM today. Had a restless night, due to some anxiety about the surgery. She is indicating that she will likely want her lap band to be removed at the same time as the hernia repair. Objective: Vital Signs - 8 hr 05/01/19 05/01/19 07:00 08:00 Temperature 97.6 F Pulse Rate 71 Respiratory 16 16 Rate Blood Pressure 138/62 (mmHg) O2 Sat by Pulse 97 Oximetry Intake and Output Last 24 Hours 04/29/19 04/30/19 05/01/19 05/02/19 06:59 06:59 06:59 06:59 Intake Total 191 2420 750 Output Total 800 1100 100 Balance 1113 1320 650 Weight 315 lb Intake: IV Fluids 1912 1660 NS (0.9%) 903 1660 Oral 760 750 Output: Urine 800 1100 100 Other: Estimated Void Small Date of Last Bowel 04/30/2019 04/30/2019 Movement # Bowel Movements 1 1 Estimated Stool Amount Large Small # Voids 1 PEX: General: Alert, in NAD or discomfort Heart: RRR, no MRG Lungs: CTAB, no WRR Abdomen: Obese. Soft, nondistended. + Bowel sounds. Mild periumbilical tenderness. No palpable hernia. Extremities: Calves nontender. No edema. Distal pulses intact bilaterally. Assessment and Plan 74 yo F with small bowel obstruction likely due to ventral hernia. She is stable and plan is for surgery tomorrow (05/02/2019). NPO after midnight. Pre op antibiotic order in chart. Ordered evening dose of benadryl for sleeping aid. Continue ambulation.
[2019-05-01] MEDS: Insulin LISPRO* 1 UNITS UNIT SUBCUT SCH ×3 (12:49→21:30)
[2019-05-01] MEDS ORDERED: Buffered Lidocaine 1% SYRIN* 1 ML/SYRINGE INTRADERM ONE (14:41)
[2019-05-01] MEDS: diPHENhydraMINE PO* 25 MG PO SCH (21:32)
[2019-05-02] MEDS: Heparin VIAL(*) 5000 UNITS/ML VIAL (FIVE THOUSAND) SUBCUT SCH (06:12)
[2019-05-02] MEDS: Lactated Ringers 1000 ML Bag* 1,000 ML IV SCH ×2 (06:30→21:22)
[2019-05-02 06:34] LABS: Potassium 3.3 mmol/L (3.5-5.0)
[2019-05-02] MEDS: Atorvastatin* 20 MG TAB PO SCH (08:43)
[2019-05-02] MEDS: Pantoprazole TAB * 40 MG TAB PO SCH (08:44)
[2019-05-02] MEDS: Citalopram TAB* 20 MG PO SCH ×3 (08:44→10:59)
[2019-05-02] MEDS: Insulin LISPRO* 1 UNITS UNIT SUBCUT SCH ×4 (09:15→20:55)
--- NOTE | 2019-05-02 11:01 | PN ---
Subjective Date of Service: 05/02/19 Interval History: HOSPITALIST PROGRESS NOTE Patient seen and examined at bedside. Care reviewed and d/w Yecenia Gonzalez RN. She is anxious for surgery today. Became upset earlier today when nurse had difficulties finding IV access and she required multiple sticks. No recurrence of abdominal pain, nausea or vomiting. Family History: Unchanged from Admission Social History: Unchanged from Admission Past Medical History: Unchanged from Admission Objective Active Medications: Acetaminophen (Tylenol 650 Mg Supp) 650 mg [place] Q4H PRN PRN Reason: MILD PAIN or TEMP > 100.4 Albuterol (Ventolin Hfa Inhaler*) 2 puff INH Q4H PRN PRN Reason: SHORTNESS OF BREATH Atorvastatin Calcium (Lipitor*) 20 mg PO DAILY [facility] Last Admin: 05/02/19 08:43 Dose: Not Given Citalopram Hydrobromide (Celexa Tab*) 20 mg PO DAILY [facility] Last Admin: 05/02/19 10:59 Dose: Not Given Dextrose (D50w Syringe 50 Ml*) 12.5 gm IV PUSH .FOR FS < 60 - SS PRN PRN Reason: FS < 60 Diphenhydramine HCl (Benadryl Po*) 25 mg PO BEDTIME [facility] Last Admin: 05/01/19 21:32 Dose: 25 mg Econazole Nitrate (Econazole 1 % Cream (Nf)) 1 applic TOPICAL BID PRN PRN Reason: RASH Last Admin: 05/01/19 11:17 Dose: 1 applic Heparin Sodium (Porcine) (Heparin Vial(*)) 5,000 units SUBCUT Q8HR [facility] Last Admin: 05/02/19 06:12 Dose: 5,000 units Hydralazine HCl (Apresoline Iv*) 5 mg IV SLOW PU Q6H PRN PRN Reason: SBP>180 Lactated Ringer's (Lactated Ringers 1000 Ml Bag*) 1,000 mls @ 125 mls/hr IV PER RATE [facility] Last Admin: 05/02/19 06:30 Dose: 125 mls/hr Potassium Chloride (Potassium Chloride 10 Meq/50 Ml Ivpremix*) 10 meq in 50 mls @ 50 mls/hr IV Q1H [facility] Stop: 05/02/19 13:59 Insulin Human Lispro (Humalog*) 0 units SUBCUT Q4H [facility]; Protocol Last Admin: 05/02/19 09:15 Dose: Not Given Morphine Sulfate (Morphine Inj (Syringe))*) 1 mg IV Q1H PRN PRN Reason: PAIN - MODERATE Morphine Sulfate (Morphine Inj (Syringe))*) 2 mg IV Q1H PRN PRN Reason: PAIN - SEVERE Last Admin: 04/29/19 12:20 Dose: 2 mg Pantoprazole Sodium (Protonix Tab*) 40 mg PO DAILY [facility] Last Admin: 05/02/19 08:44 Dose: Not Given Prochlorperazine Edisylate (Compazine Inj*) 5 mg IV Q6H PRN PRN Reason: NAUSEA/VOMITING Last Admin: 04/29/19 14:08 Dose: 5 mg Tramadol HCl (Ultram*) 100 mg PO Q6H PRN PRN Reason: PAIN Vital Signs - 8 hr 05/02/19 05/02/19 05/02/19 04:57 07:49 07:54 Temperature 97.9 F 98.3 F Pulse Rate 74 64 Respiratory 18 18 18 Rate Blood Pressure 151/69 147/67 (mmHg) O2 Sat by Pulse 94 98 Oximetry Oxygen Devices in Use Now: None Appearance: Physicial examination limited by body habitus. Gen: Elderly morbid obese lady lying in bed in NAD Eyes: No Scleral Icterus Ears/Nose/Mouth/Throat: Mucous Membranes Moist Neck: Trachea Midline Respiratory: Symmetrical Chest Expansion and Respiratory Effort, Clear to Auscultation Cardiovascular: RRR - Normal S1 and S2 Abdominal: NL Sounds; No Tenderness; No Distention - morbid obese Neurological: Alert and Oriented x 3, NL Muscle Strength and Tone Result Diagrams: 05/01/19 04:53 05/02/19 05:57 Assess/Plan/Problems-Billing Assessment: Mrs Ling is a 74yo F with PMH of morbid obesity with BMI 50, s/p lap band, type 2 DM, HTN, CARMELITA on CPAP, s/p left ovarian cyst resection, recent admission for SBO, who presented to ED with c/o recurrent abdominal pain, N/V, found to have another episode of SBO. - Patient Problems (1) SBO (small bowel obstruction) Comment: - Surgery input appreciated. Her recurrent episode is likely associated with incisional hernia. - SBO is resolved. - She has no complaints of chest pain or dyspnea on exertion. EKG shows NSR at 67bpm with unspecific IVCD (not LBBB), and no acute ischemic changes. According to NSQIP calculator patient is at a 9.9% risk for any complications (average 6.2 %). RCRI is 0 predicting a risk of 0.4-0.5% risk of MACE. Although the patient is at a higher then average risk for complications, the fact her SBO has recurred in a short period of time indicates her hernia needs to be repaired. I believe the benefits of the procedure outweigh the risks and we discussed R/B/A. She's optimized for proposed hernia repair. (2) Hypokalemia Comment: - Replete. (3) DM2 (diabetes mellitus, type 2) Comment: - A1c is 6.9. - Continue Lispro SS. Goal to keep FS<180 in the periop period. (4) HTN (hypertension) Comment: - Controlled. - Lisinopril on hold for now - continue to monitor. (5) DVT prophylaxis Comment: - Heparin on hold. - SCDs. (6) Full code status Comment: Status and Disposition: Inpatient.
[2019-05-02] MEDS: KCL 10 MEQ/50 ML IVPREMIX* 10 MEQ/50 ML BAG IV SCH ×3 (11:33→21:19)
[2019-05-02] MEDS ORDERED: ceFAZolin 1 GM ADVAN(*) 1 GM ADDV.VIAL IVPB ONE (15:07)
[2019-05-02] MEDS ORDERED: ceFAZolin 2 GM PREMIX in ORs 2 GM/50 ML BAG ONE (15:07)
[2019-05-02] MEDS ORDERED: Bupivacaine 0.5%* 50 ML MDV VIAL ONE (15:50)
[2019-05-02] MEDS ORDERED: Midazolam* 1 MG/ML 5 ML VIAL (5 MG) ONE (16:03)
[2019-05-02] MEDS ORDERED: Rocuronium* 10 MG/ML VIAL ONE ×2 (16:03→17:44)
[2019-05-02] MEDS ORDERED: fentaNYL* 50 MCG/ML 2 ML VIAL (100 MCG VIAL) ONE ×3 (16:03→17:12)
[2019-05-02] MEDS ORDERED: Sugammadex * 200 MG/2 ML VIAL IV PUSH ONE (18:44)
[2019-05-02] MEDS ORDERED: HYDROmorphone INJ1* 1 MG/ML SYRINGE ONE ×2 (18:48→19:14)
[2019-05-02] MEDS ORDERED: oxyCODONE/Acetamin 5/325 MG* TAB PO PRN (19:09)
[2019-05-02] MEDS ORDERED: DiMENhydriNATE IV* 50 MG/ML VIAL IV PUSH PRN (19:09)
[2019-05-02] MEDS ORDERED: Naloxone* 0.4 MG/ML 1 ML VIAL IV PRN (19:09)
--- NOTE | 2019-05-02 19:17 | PN ---
Hospitalist Progress Note Date of Service: 05/02/19 HOSPITALIST ADDENDUM Patient seen and examined in PACU. Did well during surgery as per Dr Candelaria and Dr Fleming. Still sedated, but with stable VS and oxygen saturation. Will continue to monitor in PACU for now.
[2019-05-02] MEDS: HYDROmorphone INJ1* 1 MG/ML SYRINGE IV PRN ×5 (19:18→19:56)
[2019-05-02] MEDS ORDERED: oxyCODONE/Acetamin 5/325 MG* TAB ONE (19:38)
[2019-05-02] MEDS: diPHENhydraMINE PO* 25 MG PO SCH (21:38)
[2019-05-02] MEDS: Morphine INJ* 2 MG/ML 1 ML SYRINGE (TWO MG - NEW SYRINGE VERSION) IV PRN (22:40)
[2019-05-03] MEDS: Insulin LISPRO* 1 UNITS UNIT SUBCUT SCH ×3 (00:27→07:26)
--- NOTE | 2019-05-03 02:39 | OP ---
DATE OF OPERATION: 05/02/19 - ROOM #351 DATE OF : 49 SURGEON: Raghu Candelaria MD COIL TAPER: WALLY Bell PRE-OP DIAGNOSIS: Incarcerated ventral hernia and ventral incisional hernia. POST-OP DIAGNOSIS: Incarcerated ventral incisional hernia. OPERATIVE PROCEDURE: Robotic repair of incarcerated ventral incisional hernia with mesh. INDICATIONS FOR PROCEDURE: Incarcerated ventral hernia causing bowel obstruction. Risks of surgery included but not limited to bleeding, infection, recurrence of the hernia, injury to bowel, and other intraabdominal contents were explained to the patient, who seemed to understand and agreed to the procedure and all questions were answered. DESCRIPTION OF PROCEDURE: The patient was taken to the operating room and placed supine. Preoperative antibiotics were given. After successful induction of general endotracheal anesthesia, the abdomen was prepped and draped in sterile fashion. Timeout was performed indicating correct patient and correct procedure. A right upper quadrant 5 mm trocar was placed under direct visualization of the camera using a bladeless Optiview trocar. Pneumoperitoneum was achieved at 15 mmHg. The camera was placed in the abdomen. The abdomen was scanned, there was no obvious injury from trocar placement. Two 8 mm trocars were placed heading down towards the pelvis hand width apart under direct visualization of the camera and an AirSeal 12 mm trocar was placed lateral to these, all under direct visualization of the camera. The patient was tilted slightly towards her left. The robot was brought in and docked. Adhesions to the defect were taken down and the bowel was reduced from the defect. Adhesions were also taken down to the right of the defect. The defect was multilobulated. The multilobulated sacs were removed using scissors and cautery and placed into an Endobag. The defect was then closed with two separate running 0 Stratafix PDS sutures. An oval 12 x 10 cm mesh was then brought in and placed up against the anterior abdominal wall held in place by the anchor balloon. It was sutured in place using two running 3-0 V -Loc sutures. The mesh laid nicely and flat. All 4 needles were removed from the abdomen. The Endobag was removed including the hernia sacs that were excised. The abdomen was scanned. There was no obvious injury noted. EBL minimal for the case. Hemostasis was intact. The patient tolerated the procedure well. She was extubated and taken to the Recovery in stable condition after the trocars were removed and the skin site was closed with Monocryl and glue was applied to the skin. [id number]/[facility] #: [id number] CASS[place]
[2019-05-03] MEDS: Morphine INJ* 2 MG/ML 1 ML SYRINGE (TWO MG - NEW SYRINGE VERSION) IV PRN (02:41)
[2019-05-03] MEDS: Lactated Ringers 1000 ML Bag* 1,000 ML IV SCH (05:16)
[2019-05-03] MEDS: oxyCODONE/Acetamin 5/325 MG* TAB PO PRN ×2 (08:53→14:14)
[2019-05-03] MEDS: Citalopram TAB* 20 MG PO SCH (08:53)
[2019-05-03] MEDS: Atorvastatin* 20 MG TAB PO SCH (08:53)
[2019-05-03] MEDS: Pantoprazole TAB * 40 MG TAB PO SCH (08:53)
--- NOTE | 2019-05-03 09:42 | PN ---
Subjective Date of Service: 05/03/19 Interval History: HOSPITALIST PROGRESS NOTE Patient seen and examined at bedside. Care reviewed and d/w Lenka Chu RN. She is in good spirits today. States she has some incisional pain with movement , but very comfortable at rest. Tolerated breakfast well with no N/V. Passing flatus, but no BM yet. Family History: Unchanged from Admission Social History: Unchanged from Admission Past Medical History: Unchanged from Admission Objective Active Medications: Acetaminophen (Tylenol 650 Mg Supp) 650 mg [place] Q4H PRN PRN Reason: MILD PAIN or TEMP > 100.4 Albuterol (Ventolin Hfa Inhaler*) 2 puff INH Q4H PRN PRN Reason: SHORTNESS OF BREATH Atorvastatin Calcium (Lipitor*) 20 mg PO DAILY [facility] Last Admin: 05/03/19 08:53 Dose: 20 mg Citalopram Hydrobromide (Celexa Tab*) 20 mg PO DAILY [facility] Last Admin: 05/03/19 08:53 Dose: 20 mg Dextrose (D50w Syringe 50 Ml*) 12.5 gm IV PUSH .FOR FS < 60 - SS PRN PRN Reason: FS < 60 Diphenhydramine HCl (Benadryl Po*) 25 mg PO BEDTIME [facility] Last Admin: 05/02/19 21:38 Dose: Not Given Econazole Nitrate (Econazole 1 % Cream (Nf)) 1 applic TOPICAL BID PRN PRN Reason: RASH Last Admin: 05/01/19 11:17 Dose: 1 applic Hydralazine HCl (Apresoline Iv*) 5 mg IV SLOW PU Q6H PRN PRN Reason: SBP>180 Lactated Ringer's (Lactated Ringers 1000 Ml Bag*) 1,000 mls @ 125 mls/hr IV PER RATE [facility] Last Admin: 05/03/19 05:16 Dose: 125 mls/hr Insulin Human Lispro (Humalog*) 0 units SUBCUT ACHS [facility]; Protocol Lisinopril (Prinivil Tab*) 10 mg PO DAILY@1700 [facility] Morphine Sulfate (Morphine Inj (Syringe))*) 1 mg IV Q1H PRN PRN Reason: PAIN - MODERATE Last Admin: 05/03/19 02:41 Dose: 1 mg Morphine Sulfate (Morphine Inj (Syringe))*) 2 mg IV Q1H PRN PRN Reason: PAIN - SEVERE Last Admin: 04/29/19 12:20 Dose: 2 mg Oxycodone/Acetaminophen (Percocet 5/325 Tab*) 1 tab PO Q8H PRN PRN Reason: PAIN - MODERATE Last Admin: 05/03/19 08:53 Dose: 1 tab Pantoprazole Sodium (Protonix Tab*) 40 mg PO DAILY [facility] Last Admin: 05/03/19 08:53 Dose: 40 mg Prochlorperazine Edisylate (Compazine Inj*) 5 mg IV Q6H PRN PRN Reason: NAUSEA/VOMITING Last Admin: 04/29/19 14:08 Dose: 5 mg Tramadol HCl (Ultram*) 100 mg PO Q6H PRN PRN Reason: PAIN Last Admin: 05/03/19 05:17 Dose: 100 mg Vital Signs - 8 hr 05/03/19 05/03/19 05/03/19 02:31 02:41 04:34 Temperature 98.4 F Pulse Rate 64 Respiratory 17 18 18 Rate Blood Pressure 129/49 (mmHg) O2 Sat by Pulse 95 Oximetry 05/03/19 05/03/19 05/03/19 04:42 05:17 07:17 Temperature 97.7 F Pulse Rate 66 Respiratory 16 18 16 Rate Blood Pressure 150/97 (mmHg) O2 Sat by Pulse 95 Oximetry 05/03/19 05/03/19 08:03 08:53 Temperature 98.1 F Pulse Rate 66 Respiratory 16 16 Rate Blood Pressure 129/68 (mmHg) O2 Sat by Pulse 95 Oximetry Oxygen Devices in Use Now: None Appearance: Morbid obese elderly lady sitting up in a chair in NAD Eyes: No Scleral Icterus Ears/Nose/Mouth/Throat: Mucous Membranes Moist Neck: Trachea Midline Respiratory: Symmetrical Chest Expansion and Respiratory Effort, Clear to Auscultation Cardiovascular: RRR - Normal S1 and S2 Abdominal: - - Morbid obese, soft, incisions look clean and dry, BS+ Extremities: No Edema, - - No calf tenderness Neurological: Alert and Oriented x 3, NL Muscle Strength and Tone Result Diagrams: 05/01/19 04:53 05/02/19 05:57 Assess/Plan/Problems-Billing Assessment: Mrs Ling is a 74yo F with PMH of morbid obesity with BMI 50, s/p lap band, type 2 DM, HTN, CARMELITA on CPAP, s/p left ovarian cyst resection, recent admission for SBO, who presented to ED with c/o recurrent abdominal pain, N/V, found to have another episode of SBO. - Patient Problems (1) SBO (small bowel obstruction) Comment: - Surgery input appreciated - secondary to incarcerated incisional hernia, s/p robotic repair with mesh 05/02/2019. - Continue management as per Surgery. (2) DM2 (diabetes mellitus, type 2) Comment: - A1c is 6.9. - Continue Lispro SS. Goal to keep FS<180 in the periop period. (3) HTN (hypertension) Comment: - Controlled, but trending up. - Resume Lisinopril at a lower dose (10mg) and continue to monitor. (4) DVT prophylaxis Comment: - Resume heparin and continue SCDs. (5) Full code status Comment: Status and Disposition: Inpatient.
--- NOTE | 2019-05-03 09:44 | PN ---
Progress Note - Progress Note Date of Service: 05/03/19 SOAP: Subjective: Patient reports to be feeling well. The night went well and pain was managed with Morphine. She states pain is manageable, rated a 3/10. She denies any nausea or vomiting. She is tolerating food and liquids well. She has not passed any bowel movements, but had passed flatus. She reports ambulating from bed to chair / bathroom only, but is willing walk more as tolerated by pain. Objective: Vital Signs Temp 98.1 F 05/03/19 08:03 Pulse 66 05/03/19 08:03 Resp 16 05/03/19 08:53 BP 129/68 05/03/19 08:03 Pulse Ox 95 05/03/19 08:03 Intake & Output 05/02/19 05/03/19 05/03/19 18:59 06:59 18:59 Intake Total 0 3418 911 Output Total 100 300 Balance -100 3118 911 Weight 315 lb 0.014 oz Intake: IV Fluids 2680 511 LR 2680 511 IVPB 58 KCL in Sterile Water 58 Oral 0 680 400 Output: Urine 100 300 Physical Exam: General: Pt sitting in chair in NAD CV: RRR, no murmurs, rubs or gallops Respiratory: CTAB, no rales, rhonchi or wheezes Abdomen: Soft. Midline ventral incisional scar. Positive bowel sounds throughout. Mild tenderness to palpation in the periumbilical region just lateral to the incisional scar. Mild incisional site tenderness. Incisions c/d/i. Assessment: This is a 74 year old woman s/p ventral incisional hernia repair POD#1, HD #4. She is stable and pain is well controlled. Plan: No restrictions on diet - continue consistent carbohydrate diet as tolerated. Ambulate out of bed as tolerated. Continue use of SCDs. Patient instructed on the use of incentive spirometry.
[2019-05-03] MEDS ORDERED: Insulin LISPRO* 1 UNITS UNIT SUBCUT SCH (11:30)
[2019-05-03] MEDS: ECONAZOLE 1% TOPICAL PRN (11:51)
[2019-05-03] MEDS ORDERED: Polyethylene Glycol 3350* 17 GM PACKET PO ONE (13:40)
--- NOTE | 2019-05-03 14:00 | DS ---
Admitted: 04/29/2019 Discharged: 05/03/2019 Admit diagnosis: Small bowel obstruction Discharge diagnosis: Small bowel obstruction, S/P robotic ventral hernia repair Condition at discharge: Stable Procedure performed: Robotic repair of incarcerated ventral incisional hernia with mesh PEX: General: Alert, in NAD or discomfort Integumentary: No rashes or jaundice HEENT: Oropharynx clear. Nares patent. Heart: RRR. No MRG Lungs: CTAB. No WRR ABD: Soft, nondistended. Minimal tenderness around incisions, which are C/D/I with no erythema or warmth. Bowel sounds present. No masses or hernias appreciated. Extremities: Calves nontender. Distal pulses intact bilaterally. Labs: Unremarkable Hospital course: After a recent hospitalization for SBO which resolved with conservative treatment, she presented to the ED on 04/29/2019 with ABD and nausea. A workup demonstrated recurring SBO and she was admitted on 04/29/2019 to the hospitalist service. The following days, her symptoms were beginning to resolve, though it was felt that her ventral hernia was a likely cause of her small bowel obstruction. We elected to undergo a robotic repair of the incarcerated hernia on 05/02/[address] Candelaria. The pt tolerated the procedure well and was transferred to the surgical floor for post operative recovery. On POD#1 she was feeling well, tolerating food by mouth, passing flatus, and had no other complaints; discussion was had and both the pt and Dr. Candelaria felt comfortable for discharge on her POD#1. Discharge instructions were given to the pt regarding diet, medications, activity, and post operative followup. All questions were answered. She was discharged home in stable condition on 05/03/2019.
[2019-05-03] MEDS ORDERED: oxyCODONE/Acetamin 5/325 MG* TAB PO PRN (14:01)
[2019-05-03 15:14] VITALS: BP 133/52
[2019-05-03 15:25] LABS: Activated Partial Thrombo Time 33.8 seconds (26.0-38.0); INR 1.09 (0.82-1.09)
[2019-05-03 15:30] LABS: EGFR African American 76.4 (>60); EGFR Non-African American 63.2 (>60)
[2019-05-03] MEDS ORDERED: Lisinopril TAB* 10 MG PO SCH (17:00)
[2019-05-03] MEDS ORDERED: Heparin VIAL(*) 5000 UNITS/ML VIAL (FIVE THOUSAND) SUBCUT SCH (22:00)
== END 2019-05-03 16:05 | disposition home health service (06) | DRG 354 ==
LOC: ED 08:27 → SSU 10:52 → OBSVTOIN 04-30 13:37
PROVIDERS: ADMIT Internal Medicine; ATTEND Surgery
PROC: 8E0W4CZ Robotic Assisted Procedure of Trunk Region, Percutaneous Endoscopic Approach (ICD-10-PCS; 2019-05-02)
PROC: 0WUF4JZ Supplement Abdominal Wall with Synthetic Substitute, Percutaneous Endoscopic Approach (ICD-10-PCS; principal; 2019-05-02 13:00)
DX: K43.0 Incisional hernia with obstruction, without gangrene (principal); Z68.43 Body mass index [BMI] 50.0-59.9, adult; E66.01 Morbid (severe) obesity due to excess calories; I10 Essential (primary) hypertension; G47.33 Obstructive sleep apnea (adult) (pediatric); M19.90 Unspecified osteoarthritis, unspecified site; F41.9 Anxiety disorder, unspecified; E11.9 Type 2 diabetes mellitus without complications; Z96.653 Presence of artificial knee joint, bilateral; E87.6 Hypokalemia; Z88.2 Allergy status to sulfonamides; Z98.84 Bariatric surgery status; Z99.89 Dependence on other enabling machines and devices; Z79.899 Other long term (current) drug therapy; Z79.84 Long term (current) use of oral hypoglycemic drugs
CPT/HCPCS: 36415; 74018; 74177; 80048; 80051; 80053; 82565; 83036; 83690; 84520; 85025; 85610; 85730; 93005; 96374; 96375; 99284; A9270-GY; C1781; G0378; J0690; J0780; J1170; J1644; J2250; J2270; J2405; J3010; J3480; J3490; Q9967